=== PATIENT | male | born 1965 | race Caucasian/White ===

== ENCOUNTER 2016-12-28 11:11 | Inpatient (IN) ==
[2016-12-28] MEDS ORDERED: methylPREDNISolone 125 MG/2 ML VIAL IVP ONE (11:15)
[2016-12-28] MEDS ORDERED: Ipratropium/Albuterol Neb 3 ML IH ONE ×2 (11:15→13:36)
--- NOTE | 2016-12-28 11:22 | Emergency Department Note ---
Disposition Clinical Impression: Acute exacerbation of chronic obstructive airways disease CHF (congestive heart failure) Qualifiers: Congestive heart failure type: unspecified congestive heart failure type Congestive heart failure chronicity: acute Qualified Code(s): I50.9 - Heart failure, unspecified Disposition: Admitted As Inpatient Condition: Fair Referrals: Ruchi Rodrigez CNP [Primary Care Provider] - Forms: ED Satisfaction Letter Time of Disposition: 12:32 SOB HPI - General Chief Complaint: ED Shortness of Breath/Dyspnea Stated Complaint: SOB Time Seen by Provider: 12/28/16 11:15 Source: patient Mode of arrival: private vehicle Limitations: no limitations Nursing Notes Reviewed: Yes Vital Signs Reviewed: Yes - History of Present Illness 51-year-old who states he doesn't have a diagnosis of COPD however he smoked for almost 40 years who comes in with increasing shortness of breath and wheezing. Also brings in a jar of cream colored liquid that he says is his urine. Symptoms for the last several days. Pt Subjective Complaint: shortness of breath, cough Onset (ago): day(s) Severity: moderate Consistency/Duration: constant Improves with: nothing Known history of: COPD Associated symptoms: Reports: cough. Denies: fever Treatment prior to arrival: none Cough Description: Involuntary Cough Frequency: Intermittent - Related Data Home Medications Medication Instructions Recorded Confirmed Cetirizine HCl [Zyrtec] 10 mg PO DAILY 11/13/16 11/13/16 Fluticasone Propionate Nasal 1 spr NS QPM 11/13/16 11/13/16 [Flonase] Guaifenesin [Mucinex] 600 mg PO Q12H 11/13/16 11/13/16 Pseudoephedrine [Sudafed] 30 mg PO Q72H 11/13/16 11/13/16 Previous Rx's Medication Instructions Recorded OxyCODONE/APAP 5/325 [Percocet 1 each PO Q6HR PRN #14 tablet 11/13/16 5/325 MG] Allergies Allergy/AdvReac Type Severity Reaction Status Date / Time meperidine [From Demerol] AdvReac combative Verified 11/13/16 07:33 Constitutional: Denies: fever, chills, weakness, weight change Eyes: Denies: eye pain, eye discharge, vision change ENT ED: Denies: ear pain, throat pain, dental pain, hearing loss, epistaxis, congestion, dysphagia Cardiovascular: Denies: chest pain, palpitations, dyspnea on exertion, edema, syncope Respiratory: Reports: cough, dyspnea, wheezes. Denies: hemoptysis, stridor Gastrointestinal: Denies: abdominal pain, nausea, vomiting, diarrhea, constipation, hematemesis, melena, hematochezia Genitourinary: Reports: dysuria. Denies: urgency, frequency, hematuria Musculoskeletal: Denies: back pain, neck pain, arthralgia, myalgia Integumentary: Denies: rash, abrasion, lesions Neurological: Denies: headache, weakness, numbness, paresthesias, confusion, abnormal gait, vertigo Psychiatric: Denies: anxiety, depression, suicidal thoughts, homicidal thoughts , auditory hallucinations, visual hallucinations Endocrine: Denies: fatigue Hematological/Lymphatic: Denies: easy bleeding, easy bruising Allergic/Immunologic: Denies: facial swelling, urticaria Past Medical History - Past Medical History Medical history: Reports: other Surgical history: Reports: appendectomy, orthopedic, other, other Psychiatric history: Reports: no psych history - Social History Smoking Status: Current every day smoker Alcohol use: Reports: none Drug use: Reports: none Physical Exam - General Limitations: no limitations General appearance: alert, in no apparent distress - Head Head exam: atraumatic, normocephalic, normal inspection - Eye Eye exam: Present: normal appearance, PERRL, EOMI - ENT ENT exam: normal exam, normal oropharynx, mucous membranes moist - Neck Neck exam: Present: normal inspection, full ROM, trachea midline - Chest Chest inspection: Present: normal inspection, symmetric chest wall rise - Respiratory Respiratory exam: Present: respiratory distress, wheezes - Cardiovascular Cardiovascular exam: Present: regular rate, normal rhythm, normal heart sounds - Abdominal Exam Abdominal exam: Present: soft, Non-Tender. Absent: tenderness, distention, guarding, rebound, rigidity - Expanded Lower Extremity Exam Neurovascular/Tendon exam: Absent: motor deficit, sensory deficit, tendon deficit Gait: not tested/not observed - Back Exam Back exam: Present: normal inspection, full ROM. Absent: tenderness - Neurological Exam Neurological exam: Present: alert, oriented X3 - Psychiatric Psychiatric exam: Present: normal affect, normal mood - Skin Skin exam: Present: warm, dry, intact, normal color Course Course Narrative: 51-year-old comes in with COPD/CHF exacerbation. Chest x-ray does show pulmonary congestion along with an elevated BNP. - Consultations Consultation #1: Discussed with Dr. Le who accepts the patient. Time: 12:41 Vital Signs Temperature 98.2 F 12/28/16 11:18 Pulse Rate 125 12/28/16 11:18 Respiratory Rate 20 12/28/16 11:18 Blood Pressure 146/109 12/28/16 11:18 O2 Sat by Pulse Oximetry 95 12/28/16 11:18 Temperature 98.2 F 12/28/16 11:18 Pulse Rate 116 12/28/16 12:29 Respiratory Rate 16 12/28/16 12:29 Blood Pressure 153/81 12/28/16 12:29 O2 Sat by Pulse Oximetry 94 L 12/28/16 12:29 Oxygen Delivery Oxygen Delivery Nasal Cannula Shortness of Breath/Dyspnea - Lab Data Lab results reviewed: Yes I reviewed the patient's lab results. Result diagrams: 12/28/16 11:30 12/28/16 11:30 Lab Results 12/28/16 12/28/16 12/28/16 Range/Units 11:30 11:30 11:30 WBC 10.0 (4.3-11.1) K/mcL RBC 4.36 (4.19-5.50) M/mcL Hgb 14.0 (12.9-16.9) g/dL Hct 39.4 (37.5-50.1) % MCV 90.4 (83.0-100.0) fL MCH 32.1 (28.0-33.3) pg MCHC 35.5 (31.6-35.5) g/dL RDW 14.2 (11.5-14.5) % Plt Count 212 (140-400) K/mcL MPV 9.0 L (9.4-12.4) fL Immature Gran % 0.6 (0-4) % Seg Neutrophils % 89.2 % Lymphocytes % 6.0 % Monocytes % 3.6 % Eosinophils % 0.3 % Basophils % 0.3 % Neutrophils # 8.9 (1.6-8.9) K/mcL Lymphocytes # 0.6 (0.6-4.6) K/mcL Monocytes # 0.4 (0.0-1.3) K/mcL Eosinophils # 0.0 (0.0-0.6) K/mcL Basophils # 0.0 (0.0-0.2) K/mcL PT 12.6 H (9.4-12.1) Seconds INR 1.2 APTT 25.2 L (26.0-36.0) Seconds Sodium 130 L (136-145) mEq/L Potassium 4.0 (3.5-4.5) mEq/L Chloride 97 L (98-109) mEq/L Carbon Dioxide 18 L (19-29) mEq/L BUN 16 (8-26) mg/dL Creatinine 0.72 (0.72-1.25) mg/dL Est GFR ( Amer) > 60 (> 60) Est GFR (Non-Af Amer) > 60 (> 60) BUN/Creatinine Ratio 22 (6-26) Glucose 147 H (70-99) mg/dL Calculated Osmolality 274 L (280-300) Calcium 9.1 (8.6-10.8) mg/dL Troponin I (0-0.03) ng/mL B-Natriuretic Peptide (0-100) pg/mL Urine Color (Yellow) Urine Clarity (Clear) Urine pH (5.0-8.0) pH Units Ur Specific Castine (1.010-1.025) Urine Protein (Neg-Trace) mg/dL Urine Glucose (UA) (Normal) mg/dL Urine Ketones (Negative) mg/dL Urine Blood (Negative) Urine Nitrite (Negative) Urine Bilirubin (Negative) Urine Urobilinogen (Normal) mg/dL Ur Leukocyte Esterase (Negative) Urine Microscopic RBC (0-3) per hpf Urine Microscopic WBC (0-3) per hpf Ur Squamous Epith Cells (None-Few) per lpf Urine Bacteria (None-Few) per hpf Hyaline Casts (None-Few) per lpf Ur Culture Indicated? (NO) 12/28/16 12/28/16 12/28/16 Range/Units 11:30 11:30 12:30 WBC (4.3-11.1) K/mcL RBC (4.19-5.50) M/mcL Hgb (12.9-16.9) g/dL Hct (37.5-50.1) % MCV (83.0-100.0) fL MCH (28.0-33.3) pg MCHC (31.6-35.5) g/dL RDW (11.5-14.5) % Plt Count (140-400) K/mcL MPV (9.4-12.4) fL Immature Gran % (0-4) % Seg Neutrophils % % Lymphocytes % % Monocytes % % Eosinophils % % Basophils % % Neutrophils # (1.6-8.9) K/mcL Lymphocytes # (0.6-4.6) K/mcL Monocytes # (0.0-1.3) K/mcL Eosinophils # (0.0-0.6) K/mcL Basophils # (0.0-0.2) K/mcL PT (9.4-12.1) Seconds INR APTT (26.0-36.0) Seconds Sodium (136-145) mEq/L Potassium (3.5-4.5) mEq/L Chloride (98-109) mEq/L Carbon Dioxide (19-29) mEq/L BUN (8-26) mg/dL Creatinine (0.72-1.25) mg/dL Est GFR ( Amer) (> 60) Est GFR (Non-Af Amer) (> 60) BUN/Creatinine Ratio (6-26) Glucose (70-99) mg/dL Calculated Osmolality (280-300) Calcium (8.6-10.8) mg/dL Troponin I 0.03 (0-0.03) ng/mL B-Natriuretic Peptide 674 H (0-100) pg/mL Urine Color Dark Yellow (Yellow) Urine Clarity Cloudy A (Clear) Urine pH 5.5 (5.0-8.0) pH Units Ur Specific Castine 1.027 H (1.010-1.025) Urine Protein 100 H (Neg-Trace) mg/dL Urine Glucose (UA) Normal (Normal) mg/dL Urine Ketones 15 H (Negative) mg/dL Urine Blood Trace H (Negative) Urine Nitrite Negative (Negative) Urine Bilirubin Small H (Negative) Urine Urobilinogen Normal (Normal) mg/dL Ur Leukocyte Esterase Negative (Negative) Urine Microscopic RBC 5-15 H (0-3) per hpf Urine Microscopic WBC 0-3 (0-3) per hpf Ur Squamous Epith Cells Many H (None-Few) per lpf Urine Bacteria None Seen (None-Few) per hpf Hyaline Casts None Seen (None-Few) per lpf Ur Culture Indicated? NO (NO) - Radiology Data Radiology results reviewed: Yes I reviewed the patient's radiology results. Chest X-Ray 12/28/16 11:16 IMPRESSION: Cardiomegaly with mild pulmonary vascular congestion. Asymmetric opacities at the lung bases favored to represent mild underlying pulmonary edema. Atelectasis or developing pneumonia cannot be excluded. D/ / 12/28/2016 12:25:09 Jay Jay Daniels MD / [facility] Interpreting Provider: Jay Jay Daniels MD - EKG Data EKG attestation: Yes I reviewed and interpreted this EKG. EKG shows normal: Reports: sinus rhythm Rate: Reports: tachycardia Rhythm: Reports: NSR, PVC's Interpretation: Reports: no acute changes
[2016-12-28 11:43] LABS: Basophils % 0.3 %; Eosinophils % 0.3 %; Hematocrit 39.4 % (37.5-50.1); Immature Granulocytes % 0.6 % (0-4); Lymphocytes # 0.6 K/mcL (0.6-4.6); Mean Corpuscular HGB Conc 35.5 g/dL (31.6-35.5); Mean Corpuscular Hemoglobin 32.1 pg (28.0-33.3); Mean Corpuscular Volume 90.4 fL (83.0-100.0); Monocytes # 0.4 K/mcL (0.0-1.3); Monocytes % 3.6 %; Neutrophils # 8.9 K/mcL (1.6-8.9); Platelet Count 212 K/mcL (140-400); Red Blood Count 4.36 M/mcL (4.19-5.50); Red Cell Distribution Width 14.2 % (11.5-14.5); Segmented Neutrophils % 89.2 %
[2016-12-28 11:53] LABS: INR 1.2; Prothrombin Time 12.6 Seconds (9.4-12.1)
[2016-12-28 11:55] LABS: Activated Partial Thrombo Time 25.2 Seconds (26.0-36.0); BUN/Creatinine Ratio 22 (6-26); Blood Urea Nitrogen 16 mg/dL (8-26); Calcium 9.1 mg/dL (8.6-10.8); Carbon Dioxide 18 mEq/L (19-29); Chloride 97 mEq/L (98-109); Glucose 147 mg/dL (70-99); Osmolality,Calculated 274 (280-300); Sodium 130 mEq/L (136-145); eGFR For African Americans > 60 (> 60); eGFR For Non-African Americans > 60 (> 60)
[2016-12-28] MEDS ORDERED: Furosemide 40 MG/4 ML VIAL IVP ONE (12:31)
[2016-12-28 12:41] LABS: Bilirubin,Urine Small (Negative); Blood,Urine Trace (Negative); Clarity,Urine Cloudy (Clear); Color,Urine Dark Yellow (Yellow); Glucose,Urine (UA) Normal (Normal); Ketones,Urine 15 mg/dL (Negative); Leukocyte Esterase,Urine Negative (Negative); Nitrite,Urine Negative (Negative); PH,Urine 5.5 pH Units (5.0-8.0); Protein,Urine 100 mg/dL (Neg-Trace); Specific Gravity,Urine 1.027 (1.010-1.025); Urobilinogen,Urine Normal (Normal)
[2016-12-28 12:43] LABS: Bacteria,Urine None Seen per hpf (None-Few); Hyaline Casts,Urine None Seen per lpf (None-Few); Squamous Epithelial Cell,Urine Many per lpf (None-Few); WBC,Urine 0-3 per hpf (0-3)
[2016-12-28 13:03] LABS: Alanine Aminotransferase 54 Units/L (0-55); Albumin 3.9 g/dL (3.5-5.0); Albumin/Globulin Ratio 1.3 (1.1-2.2); Alkaline Phosphatase 120 Units/L (38-126); Aspartate Amino Transferase 45 Units/L (5-34); Bilirubin,Direct 0.5 mg/dL (0.0-0.5); Bilirubin,Indirect 0.7 mg/dL (0.0-1.2); Bilirubin,Total 1.2 mg/dL (0.2-1.2); Globulin 2.9 g/dL (2.4-3.5); Total Protein 6.8 g/dL (6.0-8.3)
[2016-12-28] MEDS ORDERED: Ipratropium/Albuterol Neb 3 ML ONE (13:44)
[2016-12-28] MEDS ORDERED: Ondansetron 4 MG/2 ML VIAL IVP PRN (14:10)
[2016-12-28] MEDS ORDERED: Naloxone 0.4 MG/ML INJ IVP PRN (14:10)
[2016-12-28] MEDS ORDERED: *HR* Metoprolol 5 MG/5 ML VIAL IVP ONE (14:48)
--- NOTE | 2016-12-28 15:16 | Internal Med History&Physical ---
Date of Encounter: 12/28/16 Time of Encounter: 14:30 Assessment and Plan (1) Acute exacerbation of CHF (congestive heart failure) Current visit: Yes Status: Acute No documented history of CHF however patient reports of having extensive cardiac history of heart disease and heart failure. Given clinical presentation, will treat as CHF exacerbation Due to persistent tachycardia and hypertension, one dose of Lopressor 5mg IV given will start Carvediloll 3.125mg PO q12h starting tomorrow F/u 2D echo continue IV diuretic therapy monitor daily weight monitor I/Os fluid restricted diet continue to monitor O2 saturation O2 supplementation as needed Qualifiers: Congestive heart failure type: unspecified congestive heart failure type Qualified Code(s): I50.9 - Heart failure, unspecified (2) COPD (chronic obstructive pulmonary disease) Current visit: Yes Status: Acute Not diagnosed with COPD however given clinical history, patient will benefit from outpatient PFTs will monitor without steroids and continue bronchodilator support monitor O2 saturation O2 supplementation as needed Qualifiers: COPD type: unspecified COPD Qualified Code(s): J44.9 - Chronic obstructive pulmonary disease, unspecified (3) Hypertension Current visit: Yes Status: Acute Patient has no history of hypertension but required antihypertensive medications for BP control will continue to closely monitor added Hydralazine prn SBP>150 Qualifiers: Hypertension type: essential hypertension Qualified Code(s): I10 - Essential (primary) hypertension (4) Seasonal allergies Current visit: Yes Status: Chronic continue home medications Qualifiers: Allergic rhinitis trigger: unspecified Qualified Code(s): J30.2 - Other seasonal allergic rhinitis (5) DVT prophylaxis Current visit: Yes Status: Acute Heparin SQ (6) Hyperglycemia Current visit: Yes Status: Acute No history of DM will obtain HbA1C continue to monitor BG If remains hyperglycemic, will add correctional SS Insulin algorithm (7) Cigarette smoker Current visit: Yes Status: Acute Smoking cessation counseling provided patient not ready to quit at this time nicotine replacement therapy provided Internal Medicine - H&P: HPI Chief complaint: shortness of breath Admitted From: Home Plans for Post Hospital Care: Home History of present illness: Mr. Griffith is a 51 year old male with PMH of seasonal allergies who presents to the ER for evaluation of shortness of breath. Patient states about a week ago he had a fall outdoors while walking his dog, landing on his lateral side and hurting his ribcage and since then he has been getting short of breath. 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 He also reports of noticing bilateral lower extremity edema which has worsened over the last week. He reports of productive cough with white sputum for the last week as well. In the ER patient received nebulizer treatments, steroids, and lasix. He does not have a documented history of COPD or CHF. He states he last saw his physician in October and has been in good health prior to this episode. At this time, he is resting in bed, saturating well on nasal cannula. Denies any headache, dizziness, lightheadedness, chest pain, palpitations, abd pain, n/v, fever, or chills. Social Hx: 1-2ppd x 35years Past Med Surg Social Fam HX - Past Medical History Medical history: COPD, other Psychiatric history: no psych history - Past Surgical History Surgical History: appendectomy, orthopedic, other, other - Social History Smoking Status: Current every day smoker Packs per day: <1 Smokeless Tobacco Status: Yes (occaisional) Alcohol use: none Drug use: none - Family History Mother Hx Family Cardiac Disorders: Yes Hx Family Respiratory Disorders: Yes Internal Medicine - H&P: Meds Cetirizine HCl [Zyrtec] 10 mg PO DAILY 11/13/16 [History] Fluticasone Propionate Nasal [Flonase] 50 mcg NS QPM 11/13/16 [History] Guaifenesin [Mucinex] 600 mg PO Q12H 11/13/16 [History] Pseudoephedrine [Sudafed] 30 mg PO Q72H 11/13/16 [History] Allergies meperidine [From Demerol] Adverse Reaction (Verified 12/28/16 13:32) Agitated All Systems PM: A 10-system review of systems was performed and is negative for pertinent findings except as documented above in the HPI. - Constitutional Constitutional: as per HPI - Constitutional Vitals: Temp Pulse Resp BP Pulse Ox 97.9 F 117 16 137/85 94 L 12/28/16 14:23 12/28/16 14:23 12/28/16 14:23 12/28/16 14:23 12/28/16 14:23 General appearance: Present: cooperative, A&O X 3, morbidly obese, pleasant, no acute distress, answers questions appropriately - Head Head exam: Present: atraumatic, normocephalic - Eye Eye exam: Present: normal appearance, conjuntiva pink, sclera anicteric - Respiratory Respiratory exam: Absent: respiratory distress, wheezes (bibasilar crackles bilaterally) - Cardiovascular Cardiovascular exam: Present: JVD, +S1, +S2, tachycardia - GI/Abdominal GI/Abdominal exam: Present: normal bowel sounds, soft. Absent: distended, tenderness - Extremities Exam Extremities exam: Present: pedal edema (1+ pitting edema bilaterally), warm, radial pulses palpable and symetrical. Absent: calf tenderness, tenderness - Neurological Exam Neurological exam: Present: alert, oriented X3 - Psychiatric Psychiatric exam: Present: normal affect, normal mood Internal Med - H&P Results - Labs CBC & Chem 7: 12/28/16 11:30 12/28/16 11:30
[2016-12-28] MEDS: Nicotine 21 MG PATCH.TD24 TD SCH (15:17)
[2016-12-28] MEDS ORDERED: Ipratropium/Albuterol Neb 3 ML IH SCH (16:00)
[2016-12-28] MEDS: *HR* Heparin 5,000 UNIT/ML VIAL SQ SCH (18:01)
[2016-12-28] MEDS: Fluticasone Propionate Nasal 50 MCG/SPRAY BOTTLE NS SCH (18:01)
[2016-12-28] MEDS: Ipratropium/Albuterol Neb 3 ML IH PRN (18:30)
[2016-12-29] MEDS: Ipratropium/Albuterol Neb 3 ML IH PRN (01:10)
[2016-12-29 06:35] LABS: Basophils % 0.1 %; Eosinophils % 0.2 %; Hematocrit 36.1 % (37.5-50.1); Hemoglobin 12.6 g/dL (12.9-16.9); Immature Granulocytes % 0.6 % (0-4); Lymphocytes % 12.4 %; Mean Corpuscular HGB Conc 34.9 g/dL (31.6-35.5); Mean Corpuscular Volume 91.6 fL (83.0-100.0); Mean Platelet Volume 9.1 fL (9.4-12.4); Monocytes # 0.9 K/mcL (0.0-1.3); Monocytes % 10.7 %; Neutrophils # 6.3 K/mcL (1.6-8.9); Platelet Count 183 K/mcL (140-400); Red Blood Count 3.94 M/mcL (4.19-5.50); Red Cell Distribution Width 14.4 % (11.5-14.5)
[2016-12-29 06:46] LABS: Hemoglobin A1C 4.7 %
[2016-12-29] MEDS: Furosemide 40 MG/4 ML VIAL IVP SCH ×2 (06:48→08:01)
[2016-12-29] MEDS: *HR* Heparin 5,000 UNIT/ML VIAL SQ SCH ×2 (06:48→17:45)
[2016-12-29 06:50] LABS: BUN/Creatinine Ratio 19 (6-26); Blood Urea Nitrogen 15 mg/dL (8-26); Carbon Dioxide 26 mEq/L (19-29); Chloride 100 mEq/L (98-109); Chol/HDL Ratio 3.6 (0-4.9); Cholesterol 139 mg/dL (< 200); Glucose 116 mg/dL (70-99); HDL Cholesterol 39 mg/dL (40-59); LDL Cholesterol,Calculated 82 mg/dL (0-99); Magnesium 1.9 mg/dL (1.6-2.6); Osmolality,Calculated 284 (280-300); Phosphorous 3.6 mg/dL (2.3-4.7); Potassium 3.4 mEq/L (3.5-4.5); Sodium 136 mEq/L (136-145); Triglycerides 88 mg/dL (< 150); eGFR For African Americans > 60 (> 60); eGFR For Non-African Americans > 60 (> 60)
[2016-12-29] MEDS: Loratadine 10 MG TABLET PO SCH (08:01)
[2016-12-29] MEDS: Nicotine 21 MG PATCH.TD24 TD SCH (08:01)
[2016-12-29] MEDS ORDERED: Perflutren Lipid Microsphere 1.3 ML in 0.9 % Sodium Chloride 8.7 ML IVP ONE (08:50)
--- NOTE | 2016-12-29 10:11 | Internal Med Progress Note ---
Date of Encounter: 12/29/16 Time of Encounter: 10:09 - Assessment and plan (1) Acute exacerbation of CHF (congestive heart failure) Current Visit: Yes Status: Acute Assessment and plan: Acute respiratory distress likely secondary to combination of possible acute CHF exacerbation systolic versus diastolic with also acute COPD exacerbation secondary to bronchitis viral versus bacterial/early community-acquired pneumonia Chest x-ray shows pulmonary vascular congestion with acute pulmonary edema, pneumonia cannot be excluded Continue with IV Lasix, strict I's and nose and daily weight *Prednisone and azithromycin DuoNeb nebs and oxygen therapy Echocardiogram report pending Qualifiers: Congestive heart failure type: unspecified congestive heart failure type Qualified Code(s): I50.9 - Heart failure, unspecified (2) Acute exacerbation of chronic obstructive airways disease Current Visit: Yes Status: Acute (3) Cigarette smoker Current Visit: Yes Status: Acute Assessment and plan: Smoking cessation counseling given for 5 min Nicotine patch (4) Hypertension Current Visit: Yes Status: Acute Qualifiers: Hypertension type: essential hypertension Qualified Code(s): I10 - Essential (primary) hypertension (5) Hypokalemia Current Visit: Yes Status: Acute Assessment and plan: replete as needed high risk due to pulm edema and possible PNA - Time Spent With Patient Greater than 35 minutes - Subjective Interval history: Still short of breath, is bringing up whitish phlegm. Denies any chest pain, no abdominal pain, no dysuria, no fevers overnight. - Constitutional Vitals: Temp Pulse Resp BP Pulse Ox 97.3 F L 92 20 131/84 96 12/29/16 07:15 12/29/16 07:15 12/29/16 07:15 12/29/16 07:15 12/29/16 07:15 General appearance: Present: cooperative, A&O X 3, morbidly obese, pleasant, no acute distress, answers questions appropriately - Head Head exam: Present: atraumatic, normocephalic - Eye Eye exam: Present: PERRL, conjuntiva pink, sclera anicteric Pupils: Present: PERRL - Neck Neck exam general surgery: Present: supple, trachea midline. Absent: lymphadenopathy - Respiratory Respiratory exam: Present: decreased breath sounds (Very diminished breath sounds with mild diffuse wheezing and bibasilar crackles), CTAB. Absent: accessory muscle use, rales, rhonchi, wheezes - Cardiovascular Cardiovascular exam: Present: RRR, +S1, +S2. Absent: diastolic murmur, gallop, rubs, systolic murmur - GI/Abdominal GI/Abdominal exam: Present: normal bowel sounds, soft, no peritoneal signs. Absent: distended, tenderness - Extremities Exam Extremities exam: Present: warm, radial pulses palpable and symetrical. Absent : calf tenderness, cyanotic, pedal edema - Neurological Exam Neurological exam: Present: CN II-XII intact, oriented X3, no focal deficits. Absent: pronater drift, facial droop, speech deficit - Skin Skin exam: Present: dry, intact Internal Medicine: Result - Labs CBC & Chem 7: 12/29/16 06:09 12/29/16 06:09 Labs: Short CBC 12/29/16 Range/Units 06:09 WBC 8.2 (4.3-11.1) K/mcL Hgb 12.6 L (12.9-16.9) g/dL Hct 36.1 L (37.5-50.1) % Plt Count 183 (140-400) K/mcL Neutrophils # 6.3 (1.6-8.9) K/mcL BMP 12/29/16 06:09 Sodium 136 Potassium 3.4 L Chloride 100 Carbon Dioxide 26 BUN 15 Creatinine 0.78 Glucose 116 H Calcium 9.0 - ABG Interpretation ABG results: PT/INR, D-dimer PT 12.6 Seconds (9.4-12.1) H 12/28/16 11:30 Consult Discharge Plan - Plan Referrals: Ruchi Rodrigez CNP [Primary Care Provider] - (web request)
[2016-12-29] MEDS: predniSONE 20 MG TABLET PO SCH (10:31)
[2016-12-29] MEDS ORDERED: Nitroglycerin 0.4 MG TAB.SUBL SL PRN (10:52)
--- NOTE | 2016-12-29 10:53 | ECHO - Doppler Report ---
Echo with Imaging Enhancement Agent Name: Carter Griffith Date of Study: 12/29/2016 Date: 1965 Ht: 72.0 in Medical Record#: [id number] Age: 51 Wt: 247.0 lb Gender: Male BSA: 2.33 Order #: [id number] Location: [facility] Room #: 2A34 Reading Physician: Alessandro Dixon DO, FACC, LORIE CLAY Plumber'S Assistant: Soledad Crump, RVT, RDCS Ordering Physician: Bambi Bonilla MD Primary Physician: Ruchi Rodrigez CNP Indications: Evaluate wall motion, Shortness of breath Impressions: LVEF 15%. Severely dilated left ventricle. Severe global left ventricular systolic dysfunction. Indeterminate diastolic function. There is no LV thrombus. Grossly, the right ventricle appears mildly dilated and hypokinetic. Mild mitral regurgitation. No evidence of pulmonary hypertension. RVSP not well obtained and could be underestimated. Dr. Aquino notified via Pre[facility]. Left Ventricular Wall Motion: Rest Echo Findings The apex, apical inferior, mid inferior, basal inferior, apical anterior, mid anterior, basal anterior, apical septal, mid inferior septal, basal inferior septal, apical lateral, mid anterior lateral, basal anterior lateral, mid anterior septal, mid inferior lateral, basal anterior septal and basal inferior lateral givens were hypokinetic. Findings: Study Quality * Technically adequate exam. ECG Findings * Sinus tachycardia. Left Ventricle * LVEF 15%. * Severely dilated left ventricle. * Severe global left ventricular systolic dysfunction. * Indeterminate diastolic function. * There is no LV thrombus. Right Ventricle * Grossly, the right ventricle appears mildly dilated and hypokinetic. Left Atrium * Moderately dilated left atrium. Right Atrium * Mildly dilated right atrium. Interatrial Septum * Interatrial septum not well evaluated. Aortic Valve * Trileaflet aortic valve with normal function. * No aortic regurgitation. * No aortic stenosis. Mitral Valve * Normal mitral valve structure. * Mitral valve not well visualized. * Mild mitral regurgitation. * No mitral stenosis. Tricuspid Valve * Normal tricuspid valve structure and function. * Trace tricuspid regurgitation. * No evidence of pulmonary hypertension. Pulmonic Valve * Normal pulmonic valve structure and function. * No pulmonic regurgitation. Aorta * Normally sized aortic root. Pericardium * The pericardium appears normal. IVC * Normal IVC dimensions and inspiratory collapse. Pulmonary Artery * Pulmonary artery not well visualized. History History of Smoking Years 39 Packs 0.5 Family History of CAD Contrast: Definity 1.3 ml in 8.7 ml of saline 5 ml. Measurements: BP: 131/ 84 2D Normal Values RVIDd: 2.40 cm <2.7 cm IVSd: 1.10 cm 0.6 - 1.0 cm LVIDd: 6.80 cm 3.7 - 5.6 cm LVPWd: 1.40 cm 0.6 - 1.1 cm LVIDs: 6.30 cm 1.5 - 3.6 cm AO: 3.30 cm < 4.0 cm LA: 3.60 cm 2.0 - 4.0cm %FS: 7.35 cm >25 % LA volume: 73 Mitral Valve Peak E:.82 m/sec Tricuspid Valve TV Regurg Peak Grad: 17.00mmHg TV Regurg Peak Felipe: 2.06m/sec Updated by Alessandro Dixon DO, CHETNA, LORIE CLAY on 12/29/2016 10:47:46 AM electronically signed on 12/29/2016 10:50:14 AM with status of Final Wall Motion Blount: 1=Normal, 2=Hypokinesis, 3=Akinesis, 4=Dyskinesis, 5=Aneurysmal, 6=Hyperkinetic, X=Not Visualized (Blank)=Missing
[2016-12-29] MEDS ORDERED: Azithromycin 500 MG in D5% in Water 250 ML IVPB SCH (11:00)
[2016-12-29] MEDS ORDERED: *HR* Metoprolol 5 MG/5 ML VIAL IVP ONE (11:21)
[2016-12-29] MEDS: *HR* Metoprolol 5 MG/5 ML VIAL IVP PRN ×2 (11:29→11:55)
[2016-12-29] MEDS ORDERED: *HR* Metoprolol 5 MG/5 ML VIAL IVP SCH (11:30)
[2016-12-29] MEDS ORDERED: Furosemide 20 MG/2 ML VIAL IVP ONE (11:47)
--- NOTE | 2016-12-29 12:01 | Cardiology Consult Note ---
<Giorgio Dawson R - Last Filed: 12/29/16 12:17> Date of Encounter: 12/29/16 Time of Encounter: 11:59 Assessment and Plan (1) Unstable angina Current Visit: Yes Status: Acute Pt pale, hypotensive, tachycardic, diaphoretic, with pain between his shoulder blades. Echo today showed EF 15%. EKG shows ST depressions. Recommend proceeding with [facility] today for ischemic evaluation. R/B/A discussed. Pt agrees. ASA, Statin, BB were all started. Will continue to follow. (2) Acute exacerbation of CHF (congestive heart failure) Current Visit: Yes Status: Acute Presented with dyspnea, lower extremity edema, ongoing for the past month. BNP 674, CXR with pulmonary vascular congestion and acute pulmonary edema. BLE edema on exam. Echo resulted--EF 15%, severe global LV dysfunction, mild MR. LHC to rule out ischemic cause. Pt currently hypotensive, diaphoretic and having active pain between his shoulder blades. R/B/A discussed. Pt agreeable. [facility] today. On Lasix IV 40mg BID--agree with IV diuresis. Cumulative I/O -2565mL. Recommend strict I/O, Na and fluid restriction, daily weights. Continue to follow. Qualifiers: Congestive heart failure type: unspecified congestive heart failure type Qualified Code(s): I50.9 - Heart failure, unspecified (3) Cardiomyopathy Current Visit: Yes Status: Acute New diagnosis EF 15%--global. CHF exacerbation. Does report working a lot, being under a lot of stress with his daughter. Reports drinking alcohol approximately 2 times per week, 2 drinks when he does drink. Ischemic vs. Nonischemic. [facility] to evaluate. Qualifiers: Cardiomyopathy type: unspecified Qualified Code(s): I42.9 - Cardiomyopathy , unspecified (4) Tobacco abuse Current Visit: Yes Status: Acute Smoking cessation counseling given. Discussion w patient/family: The assessment and plan as outlined above was discussed with the patient and/or family members who expressed understanding and agreement. All questions were answered. Thank you for involving us in the care of your patient. Please call with any questions. I will discuss all the above with Dr. Mccarty and make changes as necessary. History of Present Illness Consult date: 12/29/16 Requesting physician: Daniel Johnson Consult reason: CMP, EF 15% Chief complaint: dyspnea, lower extremity edema, pain between shoulder blades History of present illness: Mr. Griffith is a 51 year old male with known PMH of seasonal allergies who presents to the ER for evaluation of shortness of breath. Patient states beginning of November he had a fall outdoors while hunting, landing on his left side and hurting his rib cage and since then he has been getting short of breath. 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 He also reports of noticing bilateral lower extremity edema which has worsened over the last week. He reports of productive cough with white sputum for the last week as well. He reports he has been having intermittent left sided chest pain and back pain between his shoulder blades since the fall, but attributed it to being bruised from the fall. Initial troponin yesterday was negative. Echo resulted today that shows EF 15%, severe global LV dysfunction. Mild Cardiology was consulted. On my arrival, pt is diaphoretic, dizzy, hypotensive, ill appearing. He is complaining of active pain between his shoulder blades. EKG with ST depression. Admits to alcohol intake 2x week, a couple of drinks each time. Grandfather had RI in his 50s. Past Med Surg Social Fam HX - Past Medical History Medical history: COPD, other Psychiatric history: no psych history - Past Surgical History Surgical History: appendectomy, orthopedic, other, other - Social History Smoking Status: Current every day smoker Packs per day: <1 Smokeless Tobacco Status: Yes (occaisional) Alcohol use: none Drug use: none - Family History Mother Hx Family Cardiac Disorders: Yes Hx Family Respiratory Disorders: Yes Medications and Allergies Cetirizine HCl [Zyrtec] 10 mg PO DAILY 11/13/16 [History] Fluticasone Propionate Nasal [Flonase] 50 mcg NS QPM 11/13/16 [History] Guaifenesin [Mucinex] 600 mg PO Q12H 11/13/16 [History] Pseudoephedrine [Sudafed] 30 mg PO Q72H 11/13/16 [History] Allergies meperidine [From Demerol] Adverse Reaction (Verified 12/28/16 13:32) Agitated All Systems Review: A 10-system review of systems was performed and is negative for pertinent findings except as documented above in the HPI. - Cardiovascular Cardiovascular: as per HPI, chest pain at rest, diaphoresis, dyspnea at rest, dyspnea on exertion, leg edema, lightheadedness, orthopnea Physical Examination Vital Signs, Last 4 Hours Temp Pulse Resp BP Pulse Ox 12/29/16 11:37 111 109/56 12/29/16 11:23 130 18 117/82 12/29/16 10:49 98.5 F 122 18 109/81 99 Vital Signs Temp Pulse Resp BP Pulse Ox 12/29/16 11:37 111 109/56 12/29/16 11:23 130 18 117/82 12/29/16 10:49 98.5 F 122 18 109/81 99 12/29/16 07:15 97.3 F L 92 20 131/84 96 12/29/16 04:49 97.5 F L 112 18 124/82 98 12/29/16 01:16 97 F L 108 16 108/72 99 12/29/16 01:11 20 97 12/28/16 20:54 98.1 F 108 20 99/64 95 12/28/16 18:30 16 98 12/28/16 18:19 99 F 108 16 107/82 96 12/28/16 15:56 97.4 F L 113 16 111/79 95 12/28/16 14:23 97.9 F 117 16 137/85 94 L 12/28/16 13:41 12 126/107 12/28/16 12:29 116 16 153/81 94 L Intake and Output 12/28/16 12/29/16 12/29/16 23:59 07:59 15:59 Intake Total 120 / 120 0 / 0 540 / 540 Output Total 1400 / 1400 600 / 600 550 / 550 Balance -1280 / -1280 -600 / -600 -10 / -10 Intake: Oral 120 / 120 0 / 0 540 / 540 Output: Urine 1400 / 1400 600 / 600 550 / 550 Other: Meal Dinner Breakfast Percent of Meal Consumed 100% 100% # Voids 3 1 Weight 113.217 kg Patient Weight 12/29/16 23:59 Weight 113.217 kg General: Conversant, No Apparent Distress HEENT: Atraumatic, Normocephaly, Mucus Membranes Moist Neck: Other (JVD noted) Cardiac: Reg Rate and Rhythm Lungs: Other (crackles, diminished) Neuro: Alert and responsive, No focal deficits noted Abdomen: Soft, Non-Tender Skin: No rashes noted on visualized skin Musculoskeletal: No Chest Wall Tenderness Extremities: Other (2+ BLE edema) Results 12/29/16 06:09 12/29/16 06:09 Lab Results 12/29/16 12/29/16 06:09 06:09 WBC 8.2 Hgb 12.6 L Hct 36.1 L Plt Count 183 Sodium 136 Potassium 3.4 L Chloride 100 Carbon Dioxide 26 BUN 15 Creatinine 0.78 Glucose 116 H Calcium 9.0 Magnesium 1.9 Short CBC 12/29/16 Range/Units 06:09 WBC 8.2 (4.3-11.1) K/mcL Hgb 12.6 L (12.9-16.9) g/dL Hct 36.1 L (37.5-50.1) % Plt Count 183 (140-400) K/mcL Neutrophils # 6.3 (1.6-8.9) K/mcL BMP 12/29/16 12/28/16 Range/Units 06:09 11:30 Sodium 136 130 L (136-145) mEq/L Potassium 3.4 L 4.0 (3.5-4.5) mEq/L Chloride 100 97 L (98-109) mEq/L Carbon Dioxide 26 18 L (19-29) mEq/L BUN 15 16 (8-26) mg/dL Creatinine 0.78 0.72 (0.72-1.25) mg/dL Glucose 116 H 147 H (70-99) mg/dL Calcium 9.0 9.1 (8.6-10.8) mg/dL Cardiac Enzymes 12/29/16 Range/Units 11:38 Troponin I 0.03 (0-0.03) ng/mL Liver Function 12/28/16 Range/Units 11:30 Total Bilirubin 1.2 (0.2-1.2) mg/dL Direct Bilirubin 0.5 (0.0-0.5) mg/dL AST 45 H (5-34) Units/L ALT 54 (0-55) Units/L Alkaline Phosphatase 120 (38-126) Units/L Albumin 3.9 (3.5-5.0) g/dL Urine 12/28/16 Range/Units 12:30 Urine Color Dark Yellow (Yellow) Urine Clarity Cloudy A (Clear) Urine pH 5.5 (5.0-8.0) pH Units Ur Specific [place] 1.027 H (1.010-1.025) Urine Protein 100 H (Neg-Trace) mg/dL Urine Glucose (UA) Normal (Normal) mg/dL Impressions Chest X-Ray 12/28/16 11:16 IMPRESSION: Cardiomegaly with mild pulmonary vascular congestion. Asymmetric opacities at the lung bases favored to represent mild underlying pulmonary edema. Atelectasis or developing pneumonia cannot be excluded. D/ / 12/28/2016 12:25:09 Jay Jay Daniels MD / [facility] Interpreting Provider: Jay Jay Daniels MD Active Medications Albuterol/Ipratropium (Duoneb) 3 ml IH [id number] PRN; Protocol PRN Reason: Shortness Of Breath/Wheezing Stop: 06/29/17 14:10 Last Admin: 12/29/16 01:10 Dose: 3 ml Aspirin (Aspirin) 325 mg PO DAILY JULIO C Stop: 06/30/17 11:01 Atorvastatin Calcium (Lipitor) 40 mg PO HS JULIO C Stop: 06/30/17 21:01 Azithromycin (Zithromax) 500 mg PO Q24H JULIO C Stop: 01/01/17 12:01 Carvedilol (Coreg) 3.125 mg PO BIDWM JULIO C PRN Reason: Protocol Stop: 06/30/17 08:01 Last Admin: 12/29/16 08:01 Dose: 3.125 mg Fluticasone Propionate (Flonase) 50 mcg NS QPM JULIO C PRN Reason: Protocol Stop: 06/29/17 18:01 Last Admin: 12/28/16 18:01 Dose: 50 mcg Furosemide (Lasix) 40 mg IVP BID JULIO C Stop: 06/30/17 07:01 Last Admin: 12/29/16 08:01 Dose: Not Given Guaifenesin (Mucinex) 600 mg PO Q12H PRN PRN Reason: cough Stop: 06/29/17 14:07 Heparin Sodium (Porcine) (Heparin) 5,000 unit SQ Q12HCO JULIO C Stop: 06/29/17 19:01 Last Admin: 12/29/16 06:48 Dose: 5,000 unit Hydralazine HCl (Hydralazine) 10 mg IVP Q6HR PRN PRN Reason: Hypertension Stop: 06/29/17 15:05 Loratadine (Claritin) 10 mg PO DAILY JULIO C PRN Reason: Protocol Stop: 06/30/17 09:01 Last Admin: 12/29/16 08:01 Dose: 10 mg Metoprolol Tartrate (Lopressor) 5 mg IVP Q5MIN PRN PRN Reason: heart rate greater than 130 Stop: 12/31/16 11:31 Last Admin: 12/29/16 11:29 Dose: 5 mg Naloxone HCl (Narcan) 0.4 mg IVP Q2MIN PRN PRN Reason: Opioid Reversal Stop: 06/29/17 14:11 Nicotine (Nicoderm) 21 mg TD DAILY JULIO C PRN Reason: Protocol Stop: 06/29/17 15:16 Last Admin: 12/29/16 08:01 Dose: 21 mg Nitroglycerin (Nitroglycerin) 0.4 mg SL Q5MIN PRN PRN Reason: Chest Pain Stop: 06/30/17 10:53 Ondansetron HCl (Zofran) 4 mg IVP Q6HR PRN PRN Reason: Nausea And Vomiting Stop: 06/29/17 14:11 Potassium Chloride (Potassium Chloride) 10 meq PO DAILY [facility] Stop: 07/01/17 09:01 Prednisone (Prednisone) 40 mg PO DAILY JULIO C Stop: 06/30/17 10:16 Last Admin: 12/29/16 10:31 Dose: 40 mg - Imaging and Cardiology Chest Xray: report reviewed Echo: report reviewed - EKG Interpretation EKG results cardiology: personally reviewed (SR, ST depression noted), other ( 12 hour tele AVG HR) Consult Discharge Plan - Plan Referrals: Ruchi Rodrigez, ESTHETICIAN [Primary Care Provider] - (web request) <Dez Mccarty - Last Filed: 12/29/16 13:35> Assessment and Plan Discussion w patient/family: The assessment and plan as outlined above was discussed with the patient and/or family members who expressed understanding and agreement. All questions were answered. Thank you for involving us in the care of your patient. Please call with any questions. History of Present Illness History of present illness: Mr. Griffith is a 51 year old male All Systems Review: A 10-system review of systems was performed and is negative for pertinent findings except as documented above in the HPI. Physical Examination Vital Signs, Last 4 Hours Temp Pulse Resp BP Pulse Ox 12/29/16 12:07 118 87/50 12/29/16 11:37 111 109/56 12/29/16 11:23 130 18 117/82 12/29/16 10:49 98.5 F 122 18 109/81 99 Results 12/29/16 06:09 12/29/16 06:09 Lab Results 12/29/16 12/29/16 12/29/16 06:09 06:09 11:38 WBC 8.2 Hgb 12.6 L Hct 36.1 L Plt Count 183 Sodium 136 Potassium 3.4 L Chloride 100 Carbon Dioxide 26 BUN 15 Creatinine 0.78 Glucose 116 H Calcium 9.0 Magnesium 1.9 Troponin I 0.03 - Attending Attestation I examined this patient and my medical decision-making was reviewed with the HAND BOOKED FOLDER AND STITCHER/PA/Advanced Practice Nurse/Resident Physician. I agree with the documented findings, disposition and treatment plan as described except to the extent set forth below. Pt admitted for new onset CHF ef 15% with segmental wall motion abnormality no cp , cough BP 92/60 pulse 100 cool ext CVS: sofst s3 Lungs clear Ext cool EKG: St with T wave inversion in lateral leads CXR: reviewed by me shows CMG plan; ASA Hold B blockers cath today d/w pt and Thanks !
[2016-12-29] MEDS: Aspirin 325 MG TABLET PO SCH (12:05)
[2016-12-29] MEDS ORDERED: 0.9 % Sodium Chloride 1,000 ML ONE ×2 (12:39→13:05)
[2016-12-29] MEDS ORDERED: Heparin 1,000 UNITS/500 mL NS 0 ML ONE (12:39)
[2016-12-29] MEDS ORDERED: *HR* Heparin 10,000 UNIT/10 ML VIAL ONE (12:39)
[2016-12-29 12:41] LABS: Adenovirus Not Detected (Not Detect); Bordetella Pertussis Not Detected (Not Detect); Chlamydophila pneumoniae Not Detected (Not Detect); Coronavirus 229E Not Detected (Not Detect); Coronavirus HKU1 Not Detected (Not Detect); Coronavirus NL63 Not Detected (Not Detect); Coronavirus OC43 Not Detected (Not Detect); Human Metapneumovirus Not Detected (Not Detect); Human Rhinovirus/Enterovirus Not Detected (Not Detect); Influenza A Subtype 2009 H1 Not Detected (Not Detect); Influenza A Untypeable Not Detected (Not Detect); Influenza B Not Detected (Not Detect); Mycoplasma pneumoniae Not Detected (Not Detect); Parainfluenza Virus 1 Not Detected (Not Detect); Parainfluenza Virus 2 Not Detected (Not Detect); Parainfluenza Virus 3 Not Detected (Not Detect); Parainfluenza Virus 4 Not Detected (Not Detect); Respiratory Syncytial Virus Not Detected (Not Detect)
[2016-12-29] MEDS ORDERED: Heparin 1,000 UNITS/500 mL NS 500 ML ONE (12:42)
[2016-12-29] MEDS ORDERED: Nitroglycerin 1,000 MCG/10 ML VIAL IV ONE (12:43)
--- NOTE | 2016-12-29 13:02 | Pre-Sedation Evaluation ---
Pre-sedation evaluation - Pre-sedation checklist Date of procedure: 12/29/16 Procedure: HEART CATH Recent Vitals: Last Vital Signs Temp 98.5 F 12/29/16 10:49 Pulse 118 12/29/16 12:07 Resp 18 12/29/16 11:23 BP 87/50 12/29/16 12:07 Pulse Ox 99 12/29/16 10:49 H&P (including ROS) documented in medical record: Yes Previous reaction to sedatives/anesthetics: Yes; explain in comment Dietary Status: No solid food in preceding 4 hrs and no liquid in preceding 2 hrs Dentition: No loose teeth or bridges Possible difficult airway: No ASA Classification *see protocol: CLASS III-Severe systemic disease Plan of Care: Pt appropriate candidate for procedure/moderate/conscious sedation , Risks/benefits of procedure/sedation discussed w/ patient/family, If not NPO; Risk of intake outweiged by necessity to perform procedure
[2016-12-29] MEDS ORDERED: Furosemide 100 MG/10 ML VIAL ONE (13:22)
[2016-12-29] MEDS ORDERED: *HR* Morphine 2 MG/ML SYRINGE ONE (14:06)
--- NOTE | 2016-12-29 14:15 | Event Note ---
Date of Encounter: 12/29/16 Time of Encounter: 14:14 - Cardiology Event Note cath showed no CAD markedly elevated PCWP echo Ef 15% of note says he drinks heavily plan; lasix drip watch for withdrawal d/w Dr. Le
[2016-12-29] MEDS ORDERED: Furosemide 240 MG in D5% in Water 96 ML IVC SCH (14:16)
[2016-12-29] MEDS ORDERED: *HR* LORazepam 2 MG/ML VIAL IVP PRN ×3 (14:16)
--- NOTE | 2016-12-29 14:18 | Invasive Diagnostic Lab ---
Name: Carter Griffith Date of Study: 12/29/2016 Date: 1965 Ht: 180.0 cm /70.9 in Medical Record#: [id number] Age: 51 Wt: 113. kg / 249.12 lb Account/Order#: [id number] Gender: Male BSA: 2.31 Order #: [id number] Fluoro Dose: 1238 mGy BMI: 34.88 Procedure Physician: Bryon Stephens MD Referring MD: Ruchi Rodrigez CNP Referring MD: Procedures Performed: RHC/LHC Indications: Unstable Angina Impressions: There is moderate pulmonary hypertension. Recommendations: Optimal medical therapy of patient's disease. Aggressive risk factor modification. History/Risk Factors: COPD CHF Appendectomy Occasional smokeless tobacco use Everyday smoker (<1ppd) Family hx CAD Procedure Access obtained in the right Femoral artery by percutaneous puncture A 5 \T\ 7 [place] catheter was introduced via the venous sheath, balloon was inflated and catheter was advanced through the right heart chambers into the pulmonary artery capillary wedge position. Right sided pressures were obtained. Complications: None Contrast: Isovue 34ml Closure Device: manual compression Hemodynamics: Pressures Site Systolic/ A Wave Diastolic/ V Wave End Diastolic/ Mean HR MPA 51 44 47 116 PCW 43 42 41 116 RA 31 29 29 114 RV 49 34 36 116 AO 96 87 91 117 LV 104 39 40 115 LV 102 37 39 117 AO 103 84 92 116 Oximetry Site Saturation PA 50.2 PA 50.2 AO 99 AO 99 Right Heart Data Sabino Cardiac Output (l/min) 3.5 Coronary Dominance: Lesion Findings/Interventions * Left Main Coronary Artery The LMCA is angiographically free of disease. * Left Anterior Descending The LAD is angiographically free of disease. The 1st Diagonal is angiographically free of disease. * Circumflex The Circumflex is angiographically free of disease. The 1st Marginal is angiographically free of disease. * Right Coronary Artery The RCA is angiographically free of disease. The Right PDA is angiographically free of disease. Updated by Jorge Pacheco RN on 12/29/2016 2:09:39 PM Bryon Stephens MD electronically signed on 12/29/2016 2:13:35 PM with status of Final
[2016-12-29] MEDS: Fluticasone Propionate Nasal 50 MCG/SPRAY BOTTLE NS SCH (17:44)
--- NOTE | 2016-12-29 20:26 | Electrocardiograph Report ---
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
[2016-12-29] MEDS ORDERED: *HR* Morphine 2 MG/ML SYRINGE IVP PRN (22:14)
[2016-12-30 04:54] LABS: BUN/Creatinine Ratio 24 (6-26); Blood Urea Nitrogen 24 mg/dL (8-26); Calcium 8.8 mg/dL (8.6-10.8); Carbon Dioxide 31 mEq/L (19-29); Chloride 101 mEq/L (98-109); Glucose 109 mg/dL (70-99); Osmolality,Calculated 301 (280-300); Potassium 3.7 mEq/L (3.5-4.5); eGFR For African Americans > 60 (> 60); eGFR For Non-African Americans > 60 (> 60)
[2016-12-30 04:55] LABS: Sodium 143 mEq/L (136-145)
[2016-12-30] MEDS: *HR* Heparin 5,000 UNIT/ML VIAL SQ SCH ×2 (06:07→20:48)
[2016-12-30] MEDS: Nicotine 21 MG PATCH.TD24 TD SCH (08:54)
[2016-12-30] MEDS: Aspirin 325 MG TABLET PO SCH (08:55)
[2016-12-30] MEDS: predniSONE 20 MG TABLET PO SCH (08:55)
[2016-12-30] MEDS: Loratadine 10 MG TABLET PO SCH (08:55)
--- NOTE | 2016-12-30 09:55 | Cardiology Progress Note ---
Date of Encounter: 12/30/16 Time of Encounter: 09:00 Assessment and Plan (1) CHF (congestive heart failure) Current Visit: Yes Status: Acute Acute systolic CHF--patient reports progressive symptoms over the past year. TTE: EF 15%, severely dilated LV, severe global LV systolic dysfunction, RV mildly dilated & hypokinetic, mild MR. LHC: moderate PH, coronaries are angiographically free of disease. HF non-ischemic in etiology--likely secondary to hx of ETOH abuse, reports 30+ year hx, at least 2-4 beers/day & 2-4 shots of liquor per day. Symptoms improved today--still complains of orthopnea and dyspnea with minimal exertion. 24 I&O: -2650 mL, cumulative -4615 mL. Stop supplemental IVF; change lasix gtt to IVP 80 mg BID. Increase oral potassium today. Continue betablocker--increase once euvolemic. Start ACEi/ARB when BP will tolerate/euvolemic. Strict I&O's, daily weights, and fluid restriction diet. CHF teaching provided. Will need teaching reinforced throughout hospital stay. Will need 1 week f/u with [facility] upon discharge. Re-evaluate LVEF after 3 months of GDMT. Qualifiers: Congestive heart failure type: systolic Congestive heart failure chronicity : acute Qualified Code(s): I50.21 - Acute systolic (congestive) heart failure (2) Non-ischemic cardiomyopathy Current Visit: Yes Status: Acute plan as above. (3) Alcohol abuse Current Visit: Yes Status: Chronic ETOH cessation counseling. [facility] protocol. (4) Tobacco abuse Current Visit: Yes Status: Chronic Smoking cessation counseling given. Discussion w patient/family: The assessment and plan as outlined above was discussed with the patient and/or family members who expressed understanding and agreement. All questions were answered. Thank you for involving us in the care of your patient. Please call with any questions. The patient will be discussed and reviewed with Dr. Tavon Haider; changes to be made accordingly. Subjective Principal diagnosis: Non-ischemic cardiomyopathy; acute sCHF Interval history: Seen and examined. Reports abdominal fullness, lower extremity edema, and shortness of breath improving--not yet at baseline. Reports dyspnea with minimal exertion. Denies events overnight. Objective Vital Signs, Last 4 Hours Temp Pulse Resp BP Pulse Ox 12/30/16 06:33 98 F 104 16 105/64 97 General: Conversant, No Apparent Distress HEENT: Atraumatic, Normocephaly Cardiac: Reg Rate and Rhythm (tachycardiac), Normal S1 and S2 Lungs: Other (Diminished bibasilar, few rales noted. ) Neuro: Alert and responsive Abdomen: Soft (mildly distended) Skin: No rashes noted on visualized skin Musculoskeletal: No Chest Wall Tenderness Extremities: Normal Pulses, Other (trace BLE edema) Results 12/29/16 06:09 12/30/16 04:17 Lab Results 12/30/16 04:17 Sodium 143 D Potassium 3.7 Chloride 101 Carbon Dioxide 31 H BUN 24 Creatinine 0.99 Glucose 109 H Calcium 8.8 Active Medications Albuterol/Ipratropium (Duoneb) 3 ml IH [id number] PRN; Protocol PRN Reason: Shortness Of Breath/Wheezing Stop: 06/29/17 14:10 Last Admin: 12/29/16 01:10 Dose: 3 ml Aspirin (Aspirin) 81 mg PO DAILY [facility] Stop: 07/02/17 09:01 Atorvastatin Calcium (Lipitor) 40 mg PO HS JULIO C Stop: 06/30/17 21:01 Last Admin: 12/29/16 21:24 Dose: 40 mg Azithromycin (Zithromax) 500 mg PO Q24H JULIO C Stop: 01/01/17 12:01 Carvedilol (Coreg) 3.125 mg PO BIDWM JULIO C PRN Reason: Protocol Stop: 06/30/17 08:01 Last Admin: 12/30/16 08:55 Dose: 3.125 mg Fluticasone Propionate (Flonase) 50 mcg NS QPM JULIO C PRN Reason: Protocol Stop: 06/29/17 18:01 Last Admin: 12/29/16 17:44 Dose: 50 mcg Guaifenesin (Mucinex) 600 mg PO Q12H PRN PRN Reason: cough Stop: 06/29/17 14:07 Heparin Sodium (Porcine) (Heparin) 5,000 unit SQ Q12HCO JULIO C Stop: 06/29/17 19:01 Last Admin: 12/30/16 06:07 Dose: 5,000 unit Hydralazine HCl (Hydralazine) 10 mg IVP Q6HR PRN PRN Reason: Hypertension Stop: 06/29/17 15:05 Furosemide 240 mg/ Dextrose 120 mls @ 5 mls/hr IVC .Q24H JULIO C PRN Reason: 10 MG/HR Stop: 06/30/17 14:17 Last Admin: 12/29/16 15:12 Dose: 10 mg/hr, 5 mls/hr Loratadine (Claritin) 10 mg PO DAILY JULIO C PRN Reason: Protocol Stop: 06/30/17 09:01 Last Admin: 12/30/16 08:55 Dose: 10 mg Lorazepam (Ativan) 2 mg IVP Q1H PRN PRN Reason: CIWA>10 Stop: 06/30/17 14:17 Lorazepam (Ativan) 4 mg IVP Q1H PRN PRN Reason: CIWA>20 Stop: 06/30/17 14:17 Lorazepam (Ativan) 1 mg IVP Q2HR PRN PRN Reason: Agitation Stop: 06/30/17 14:17 Last Admin: 12/29/16 21:32 Dose: 1 mg Metoprolol Tartrate (Lopressor) 5 mg IVP Q5MIN PRN PRN Reason: heart rate greater than 130 Stop: 12/31/16 11:31 Last Admin: 12/29/16 11:55 Dose: 5 mg Morphine Sulfate (Morphine Sulfate) 1 mg IVP Q3H PRN PRN Reason: Pain Stop: 06/30/17 22:15 Last Admin: 12/29/16 22:34 Dose: 1 mg Naloxone HCl (Narcan) 0.4 mg IVP Q2MIN PRN PRN Reason: Opioid Reversal Stop: 06/29/17 14:11 Nicotine (Nicoderm) 21 mg TD DAILY JULIO C PRN Reason: Protocol Stop: 06/29/17 15:16 Last Admin: 12/30/16 08:54 Dose: 21 mg Nitroglycerin (Nitroglycerin) 0.4 mg SL Q5MIN PRN PRN Reason: Chest Pain Stop: 06/30/17 10:53 Ondansetron HCl (Zofran) 4 mg IVP Q6HR PRN PRN Reason: Nausea And Vomiting Stop: 06/29/17 14:11 Potassium Chloride (Potassium Chloride) 10 meq PO DAILY JULIO C Stop: 07/01/17 09:01 Last Admin: 12/30/16 08:54 Dose: 10 meq Prednisone (Prednisone) 40 mg PO DAILY JULIO C Stop: 06/30/17 10:16 Last Admin: 12/30/16 08:55 Dose: 40 mg - Imaging and Cardiology Echo: report reviewed Cardiac cath: report reviewed Other Results: 12 hour tele: avg EJ=251 ST. No significant event noted. - EKG Interpretation EKG results cardiology: personally reviewed Consult Discharge Plan - Plan Referrals: Ruchi Rodrigez OIL DEVELOPER [Primary Care Provider] - (web request)
[2016-12-30] MEDS ORDERED: Acetaminophen 325 MG TABLET PO PRN (12:40)
--- NOTE | 2016-12-30 12:40 | Internal Med Progress Note ---
Date of Encounter: 12/30/16 Time of Encounter: 12:37 - Assessment and plan (1) Acute exacerbation of CHF (congestive heart failure) Current Visit: Yes Status: Acute Assessment and plan: Acute respiratory distress likely secondary to combination of possible acute systolic CHF exacerbation (ETOH related CMP) with also acute COPD exacerbation secondary to acute bronchitis viral versus bacterial/early community-acquired pneumonia Acute systolic CHF--patient reports progressive symptoms over the past year. TTE: EF 15%, severely dilated LV, severe global LV systolic dysfunction, RV mildly dilated & hypokinetic, mild MR. LHC on 12/29/16 (EKG ST lat depression developed HR 130 and BP 80s): moderate PH, coronaries are angiographically free of disease. HF non-ischemic in etiology--likely secondary to hx of ETOH abuse, reports 30+ year hx, at least 2-4 beers/day & 2-4 shots of liquor per day. Chest x-ray shows pulmonary vascular congestion with acute pulmonary edema, pneumonia cannot be excluded Continue with IV Lasix 80 mg BID, strict I's and nose and daily weight *Prednisone and azithromycin DuoNeb nebs and oxygen therapy Qualifiers: Congestive heart failure type: unspecified congestive heart failure type Qualified Code(s): I50.9 - Heart failure, unspecified (2) Acute exacerbation of chronic obstructive airways disease Current Visit: Yes Status: Acute (3) Cigarette smoker Current Visit: Yes Status: Acute Assessment and plan: Smoking cessation counseling given for 5 min Nicotine patch (4) Hypertension Current Visit: Yes Status: Acute Qualifiers: Hypertension type: essential hypertension Qualified Code(s): I10 - Essential (primary) hypertension (5) Hypokalemia Current Visit: Yes Status: Acute Assessment and plan: replete as needed high risk due to pulm edema and possible PNA (6) Alcohol abuse Current Visit: Yes Status: Chronic Assessment and plan: drank heavily 6 years ago, now says he drinks only once in a while and can go without drinking for a few days without problems. Hold librium Continue Ativan per CIWA scale High risk of resp failure. - Time Spent With Patient Greater than 35 minutes - Subjective Interval history: Still feeling short of breath, is bringing up whitish/clear phlegm. Denies any chest pain, no abdominal pain, no dysuria, no fevers overnight. - Constitutional Vitals: Temp Pulse Resp BP Pulse Ox 97.8 F 78 16 101/66 97 12/30/16 11:28 12/30/16 11:28 12/30/16 11:28 12/30/16 11:28 12/30/16 11:28 General appearance: Present: cooperative, A&O X 3, morbidly obese, pleasant, no acute distress, answers questions appropriately - Head Head exam: Present: atraumatic, normocephalic - Eye Eye exam: Present: PERRL, conjuntiva pink, sclera anicteric Pupils: Present: PERRL - Neck Neck exam general surgery: Present: supple, trachea midline. Absent: lymphadenopathy - Respiratory Respiratory exam: Present: decreased breath sounds, CTAB, rales (B/L diffuse crackeles and minimal wheezing). Absent: accessory muscle use, rhonchi, wheezes - Cardiovascular Cardiovascular exam: Present: RRR, +S1, +S2. Absent: diastolic murmur, gallop, rubs, systolic murmur - GI/Abdominal GI/Abdominal exam: Present: normal bowel sounds, soft, no peritoneal signs. Absent: distended, tenderness - Extremities Exam Extremities exam: Present: warm, radial pulses palpable and symetrical. Absent : calf tenderness, cyanotic, pedal edema Additional comments: +1 pitting edema both lower extremities. Right groin no hematoma from cath - Neurological Exam Neurological exam: Present: CN II-XII intact, oriented X3, no focal deficits. Absent: pronater drift, facial droop, speech deficit - Skin Skin exam: Present: dry, intact Internal Medicine: Result - Labs CBC & Chem 7: 12/29/16 06:09 12/30/16 04:17 Labs: BMP 12/30/16 04:17 Sodium 143 D Potassium 3.7 Chloride 101 Carbon Dioxide 31 H BUN 24 Creatinine 0.99 Glucose 109 H Calcium 8.8 - ABG Interpretation ABG results: PT/INR, D-dimer PT 12.6 Seconds (9.4-12.1) H 12/28/16 11:30 Consult Discharge Plan - Plan Referrals: Ruchi Rodrigez [employer]CHIT[employer] [Primary Care Provider] - (web request)
[2016-12-30] MEDS ORDERED: *HR* OxyCODONE/APAP 5/325 TABLET PO PRN (12:42)
[2016-12-30] MEDS: Azithromycin 250 MG TABLET PO SCH (13:25)
[2016-12-30] MEDS: Thiamine (B-1) 100 MG TABLET PO SCH (13:25)
[2016-12-30] MEDS: Folic Acid 1 MG TABLET PO SCH (13:26)
--- NOTE | 2016-12-30 14:14 | Invasive Diagnostic Lab Proc ---
Name: Carter Griffiht Date of Study: 12/29/2016 Date: 1965 Ht: 70.9in Medical Record#: [id number] Age: 51 Wt: 249.12lb Gender: Male BSA: 2.31 Order #: [id number] BMI: 34.88 Physicians Procedure Physician: Bryon Stephens MD Referring MD: Ruchi Rodrigez CNP Referring MD: Staff Name Position Time In Esther Alford RN Wire Drawing Machine Tender 01:18 PM Jorge Pacheco RN Monitor 01:18 PM Shauna Hendrickson RT (R) Scrub 01:18 PM Indications Indication Unstable Angina Procedures Performed Procedure R HRT CORONARY ARTERY ANGIO Pre-Procedure Checklist Informed consent is complete signed and on chart. H\\T\\P is on chart. ID band is on and ID verified with patient. Patient NPO for procedure The procedure was described for the patient and questions were answered. Blood Pressure: 87/50 ECG is on chart. Rhythm: Sinus Tachycardia Plan of Care Patient will tolerate the procedure without complications. Adequate level of comfort will be maintained. Hemodynamics will remain stable Patient will recover from procedure without complications. Respiratory function will be maintained. Cardiac rhythm will remain stable. Patient temperature will be maintained. Patient and/or family have verbalized understanding of the procedure. Patient Education Chief Complaint/Reason for Test: Cardiac Cath Developmental Category: Adult (18-64 years) Developmentally Appropriate for Age: Yes Learning Barriers: None Education Needs: Procedure Education Method: Verbal Information Taught: Cardiac Cath Educational Evaluation: Able to repeat information Intravenous Access Time IV Size Location DC'd Fluid/Drip Rate Units RN 12:36 PM 20g 1 11/27" Patent On Arrival Rt Antecubital 0.9NaCl 25 ml/hr Jorge Pacheco RN Allergies meperidine Vital Signs Time BP (mmHg) HR (bpm) O2 Sat. RR (bpm) LOC 12:34 PM 87 / 50 118 99 % 18 5 = Fully awake and oriented or at pre-proc level 01:19 PM / % 5 = Fully awake and oriented or at pre-proc level 01:19 PM / % 5 = Fully awake and oriented or at pre-proc level 01:08 PM 104 / 81 121 100 % 01:13 PM 111 / 88 119 100 % 01:18 PM 99 / 48 121 100 % 16 01:23 PM 127 / 89 122 100 % 26 01:28 PM 118 / 89 121 99 % 13 01:33 PM 107 / 77 119 100 % 13 01:38 PM 113 / 61 116 99 % 13 01:43 PM 113 / 64 117 99 % 20 01:48 PM 114 / 42 120 100 % 17 01:53 PM 103 / 62 115 100 % 23 01:58 PM 112 / 76 114 99 % 22 02:03 PM 113 / 76 117 100 % 17 02:08 PM 111 / 70 115 100 % 20 Procedural Medications Time Medication Dose Units Method Given By 01:19 PM Oxygen 6 L/min simple face mask Esther Alford RN 01:28 PM Lasix 80 mg Intravenous Esther Alford RN 01:33 PM Lidocaine 2% 16 ml Subcutaneous Bryon Stephens MD 02:18 PM Morphine 2 mg IV Esther Alford RN ASA Classification: CLASS III- Severe systemic disease (i.e. prior AMI, diabetes with vascular complications, morbid obesity) Nickie Score Preprocedure Postprocedure Activity 2- Moves 4 extremities sustained head lift Activity 2- Moves 4 extremities sustained head lift Circulation 2- SBP +/= 20 points of pre-anesthetic level Circulation 2- SBP +/= 20 points of pre-anesthetic level Consciousness 2- Awake and alert oriented x 3 Consciousness 2- Awake and alert oriented x 3 O2 Saturation 2- Able to maintain O2 satruation of 92% on room air O2 Saturation 2- Able to maintain O2 satruation of 92% on room air Respiratory 2- Able to deep breathe and cough well Respiratory 2- Able to deep breathe and cough well Total Score 10 Total Score 10 Contrast Agent: Isovue Diagnostic Contrast: 34 ml Total Contrast: 34 ml Fluoro Dose: 1238 mGy Procedure Log Time Note Enter By 12:27 PM CathStat 01:07 PM Vitals capture started with the following parameters, Patient=Adult, Interval=5 min, Initial Lzdyekgl=353 mmHg, Deflation Rate=5 mmHg, Cuff placed on Left Leg 01:08 PM PS=345 bpm, XBBV=278/81 mmhg, FyR3=603.0 %, Comment=Sinus Tach 01:13 PM QM=884 bpm, WGYL=764/88 mmhg, DvU2=244.0 %, Comment=Sinus Tach 01:18 PM Pt arrived to bolt labeler 2 at 13:18 csmith 01:18 PM Parsley, Esther RN Position: Wire Drawing Machine Tender Time in: :18 csmith 01:18 PM Jorge Pacheco RN Position: Monitor Time in: : csmith :18 PM Shauna Hendrickson RT (R) Position: Scrub Time in: :18 csmith 01:18 PM TL=730 bpm, NIBP=99/48 mmhg, YeL5=122.0 %, Resp=16 B/min, Comment=Sinus Tach :18 PM Patient charges- Angio tray pack, Navilyst 3mm J, Pulse Oximetry and ACIST tubing and transducer csmith 01:18 PM Case Delayed No csmith :18 PM Physician arrived : csmith :18 PM Meet and greet completed csmith : PM Sign in performed according to hospital policy. csmith :18 PM Procedure start : csmith :18 PM short of breath unable to lay flat. Dr. Ramirez at bedside. Orders received for lasix and saenz insertion. Wedge provided and O2 per mask. csmith : PM Time: : Oxygen on at 6 L/min per simple face mask by Esther Alford RN csmith : PM Time: 13:19 Patient comfortable and pain free: Yes csmith : PM Time: 13:19LOC: 5 = Fully awake and oriented or at pre-proc level csmith 01:20 PM ASA Class CLASS III- Severe systemic disease (i.e. prior AMI, diabetes with vascular complications, morbid obesity) csmith 01:20 PM Saenz catheter inserted without difficulty per Nikki Pacheco RN Positive urine return (approx 50ml returned) csmith 01:23 PM GP=516 bpm, WTEE=993/89 mmhg, OyL6=599.0 %, Resp=26 B/min, Comment=Sinus Tach : PM JA=740 bpm, BTCN=540/89 mmhg, SpO2=99.0 %, Resp=13 B/min, Comment=Sinus Tach : PM Time: 13: Lasix 80 mg Intravenous Given by Esther Alford RN (given over 8 minutes) csmith 01:33 PM VX=717 bpm, FZVY=255/77 mmhg, IuK7=155.0 %, Resp=13 B/min, Comment=Sinus Tach : PM Sign in performed according to hospital policy. csmith 01:33 PM Procedure start 13:33 csmith 01:33 PM Case Start 01:33 PM Time out performed according to hospital policy csmith 01:34 PM Time: 13:33 16 ml Lidocaine 2% to right groin Subcutaneous Given by Bryno Stephens MD csmith 01:34 PM Time: 13:19 Patient comfortable and pain free: Yes csmith 01:34 PM Access obtained by percutaneous puncture. 7Fr 10cm Terumo Lillian sheath placed in right Femoral vein. [id number] csmith 01:35 PM Access obtained by percutaneous puncture. 6Fr 11cm Terumo Lillian sheath placed in right Femoral artery. [id number] csmith 01:35 PM Pressure channel 1 zeroed. 01:38 PM 7 F [facility] [place] straight tip inserted through venous sheath csmith 01:38 PM EL=105 bpm, RXYL=581/61 mmhg, SpO2=99.0 %, Resp=13 B/min, Comment=Sinus Tach 01:38 PM 0.025 180cm Guideright wire [id number] csmith 01:39 PM unable to advance PAC into PA, removing PAC and will attempt with 5fr PAC csmith 01:40 PM 5 F DeRoyal straight tip inserted through venous sheath csmith 01:43 PM FY=784 bpm, UMWO=303/64 mmhg, SpO2=99.0 %, Resp=20 B/min, Comment=Sinus Tach 01:45 PM PAC into PA, obtaining sat csmith 01:48 PM Recorded Pressure: MPA, HY=081, Condition=Condition 1 (Main Pulmonary Artery) MPA 51/44/47* 01:48 PM VZ=209 bpm, UIMK=348/42 mmhg, TiY6=782.0 %, Resp=17 B/min, Comment=Sinus Tach 01:48 PM Saturation: Site=PA (Pulmonary Artery) , O2=50.2 %, Hgb=12.6 gm/dl, Condition=Condition 1. Used in calculation. 01:49 PM Time: 13:34 Patient comfortable and pain free: Yes csmith 01:50 PM Recorded Pressure: PCW, CQ=028, Condition=Condition 1 (Pulmonary Capillary Wedge) PCW 43/42/41* 01:51 PM Pressure channel 1 zeroed. 01:51 PM Recorded Pressure: RA, BP=179, Condition=Condition 1 (Right Atrium) RA 31/29/29 01:52 PM Recorded Pressure: RV, YB=138, Condition=Condition 1 (Right Ventricle) RV 49/34/36 01:53 PM HO=938 bpm, MLMG=847/62 mmhg, RyY5=401.0 %, Resp=23 B/min, Comment=Sinus Tach 01:54 PM 5Fr FL 4 catheter inserted over the wire DN csmith 01:54 PM 0.035 145cm Navilyst 3mmJ wire [id number] csmith 01:54 PM Recorded Pressure: Ao, UN=377, Condition=Condition 1 (Aorta) Ao 96/87/91 01:55 PM LCA angiography performed in multiple views. csmith 01:55 PM Saturation: Site=Ao (Aorta) , O2=99 %, Hgb=12.6 gm/dl, Condition=Condition 1. Used in calculation. 01:56 PM Catheter removed csmith 01:56 PM 5Fr FR 4 catheter inserted over the wire [facility] csmith 01:57 PM RCA angiography performed in multiple views. csmith 01:57 PM Catheter removed csmith 01:57 PM 5Fr Pigtail catheter inserted over the wire [facility] csmith 01:57 PM Catheter selectively placed in left ventricle csmith 01:58 PM Recorded Pressure: LV, WJ=523, Condition=Condition 1 (Left Ventricle) LV 104/39/40 01:58 PM Recorded Pressure: LV, Ao, BE=356, Condition=Condition 1 (Left Ventricle) LV 102/37/39, (Aorta) Ao 103/84/92 01:58 PM JX=000 bpm, BQYV=644/76 mmhg, SpO2=99.0 %, Resp=22 B/min, Comment=Sinus Tach 01:59 PM no LV angiogram completed csmith 02:00 PM catheter removed and wire removed csmith 02:00 PM Procedure completed at 14:00 csmith 02:01 PM Sign out completed: Radiation Dose 1238 mGy Fluoro Time: 10 Isovue 370 - 200ml contrast 34 ml given by Bryon Stephens MD. Complications: NoneCardiac Rehab Consult needed: YesConfirmed administered medications: Yes csmith 02:01 PM Isovue 370 - 200ml,1 Bottle(s) used. csmith 02:01 PM Post ECG Sinus Tachycardia csmith 02:01 PM Post Blood Pressure 112/76 csmith 02:01 PM 14:01 Post Pulses Bilateral DP \\T\\ PT 1+ csmith 02:01 PM Information taught Cardiac Cath csmith 02:01 PM Learning barriers :None csmith 02:01 PM Education Methods Verbal csmith 02:01 PM Education evaluation Able to repeat information csmith 02:01 PM Plavix, Effient or Brilinta given No csmith 02:01 PM Family placed in consult room. csmith 02:03 PM NP=312 bpm, BAPN=870/76 mmhg, HuN3=920.0 %, Resp=17 B/min, Comment=Sinus Tach 02:05 PM Time: 13:49 Patient comfortable and pain free: Yes csmith 02:05 PM Time: 13:19LOC: 5 = Fully awake and oriented or at pre-proc level csmith 02:05 PM arterial sheath pulled at 1404 csmith 02:07 PM venous sheath pulled at 1406 csmith 02:08 PM IU=171 bpm, WHQD=917/70 mmhg, JnT3=708.0 %, Resp=20 B/min, Comment=Sinus Tach 02:19 PM Time: 14:18 Morphine 2 mg IV Given by Esther Alford RN csmith 02:24 PM [facility]: [facility] Complications Complication None Hemodynamics Pressures Site Systolic/A Wave Diastolic/V Wave Mean MPA 51 44 47 PCW 43 42 41 RA 31 29 29 RV 49 34 36 AO 96 87 91 LV 104 39 40 LV 102 37 39 AO 103 84 92 Oximetry Site Saturation PA 50.2 PA 50.2 AO 99 AO 99 Post Procedure Information Blood Pressure: 112/76 mmHg Rhythm: Sinus Tachycardia Post procedural instructions were given Closure Device Time Device Success/Fail 12/29/2016 2:07:00 PM manual compression Successful Site Checks Time Location Status Staff Sheath In? Note 02:20 PM Rt Groin No bleeding/ No Hematoma Esther Alford RN Pulses Time Site Pre-Procedure Post-Procedure Note 12/29/2016 12:37:00 PM Bilateral DP \\T\\ PT 1+ 12/29/2016 12:37:00 PM Bilateral radial 2+ 2:01:00 PM Bilateral DP \\T\\ PT 1+ Updated by Radha Rapp, RT (R) on 12/30/2016 2:08:23 PM electronically signed on 12/30/2016 2:09:03 PM with status of Final
[2016-12-30] MEDS: Ipratropium/Albuterol Neb 3 ML IH PRN ×2 (15:52→21:11)
[2016-12-30] MEDS: Fluticasone Propionate Nasal 50 MCG/SPRAY BOTTLE NS SCH (16:34)
--- NOTE | 2016-12-30 17:35 | Electrocardiograph Report ---
[address] [place] [address] Test Date: 2016-12-29 Pat Name: Carter Griffith Department: 112 Room: 2A34 Gender: M Tile Fitter: : 1965 Requested By: Daniel Johnson Order Number: [id number] Reading MD: Amaris Castaneda Measurements Intervals [place] Rate: 119 P: 34 [place]: 119 QRS: -47 QRSD: 122 T: 88 QT: 325 QTc: 396 Interpretive Statements SINUS TACHYCARDIA WITH SHORT [place] INTERVAL POSSIBLE LEFT ATRIAL ENLARGEMENT LEFT AXIS DEVIATION INTRAVENTRICULAR CONDUCTION DELAY ST DEVIATION AND MODERATE T-WAVE ABNORMALITY, CONSIDER LATERAL ISCHEMIA Electronically Signed On 12-30-2016 17:33:23 EST by Amaris Castaneda
--- NOTE | 2016-12-30 17:37 | Electrocardiograph Report ---
[address] [place] [address] Test Date: 2016-12-29 Pat Name: Carter Griffith Department: 112 Room: 2A34 Gender: M Supervisor Body Assembly: : 1965 Requested By: Daniel Johnson Order Number: [id number] Reading MD: Amaris Castaneda Measurements Intervals [place] Rate: 112 P: 54 [place]: 152 QRS: -46 QRSD: 122 T: 130 QT: 336 QTc: 403 Interpretive Statements SINUS TACHYCARDIA MARKED LEFT AXIS DEVIATION LEFT ANTERIOR FASCICULAR BLOCK INTRAVENTRICULAR CONDUCTION DELAY ST DEVIATION AND MODERATE T-WAVE ABNORMALITY, CONSIDER LATERAL ISCHEMIA Electronically Signed On 12-30-2016 17:36:39 EST by Amaris Castaneda
[2016-12-30] MEDS: Furosemide 40 MG/4 ML VIAL IVP SCH (20:48)
[2016-12-31] MEDS: Ipratropium/Albuterol Neb 3 ML IH PRN (03:34)
[2016-12-31 04:50] LABS: BUN/Creatinine Ratio 33 (6-26); Blood Urea Nitrogen 28 mg/dL (8-26); Carbon Dioxide 30 mEq/L (19-29); Chloride 100 mEq/L (98-109); Glucose 106 mg/dL (70-99); Osmolality,Calculated 304 (280-300); Sodium 144 mEq/L (136-145); eGFR For African Americans > 60 (> 60); eGFR For Non-African Americans > 60 (> 60)
[2016-12-31 04:51] LABS: Potassium 3.7 mEq/L (3.5-4.5)
[2016-12-31] MEDS: *HR* Heparin 5,000 UNIT/ML VIAL SQ SCH ×2 (05:57→20:34)
[2016-12-31] MEDS: Loratadine 10 MG TABLET PO SCH (08:42)
[2016-12-31] MEDS: Thiamine (B-1) 100 MG TABLET PO SCH (08:42)
[2016-12-31] MEDS: predniSONE 20 MG TABLET PO SCH (08:43)
[2016-12-31] MEDS: Furosemide 40 MG/4 ML VIAL IVP SCH ×2 (08:43→16:37)
[2016-12-31] MEDS: Nicotine 21 MG PATCH.TD24 TD SCH (08:43)
[2016-12-31] MEDS: Folic Acid 1 MG TABLET PO SCH (08:43)
[2016-12-31] MEDS: Aspirin Enteric Coated 81 MG Tablet PO SCH (08:43)
[2016-12-31] MEDS ORDERED: Aspirin 325 MG TABLET PO SCH (09:00)
--- NOTE | 2016-12-31 09:50 | Cardiology Progress Note ---
Date of Encounter: 12/31/16 Time of Encounter: 09:00 Assessment and Plan (1) CHF (congestive heart failure) Current Visit: Yes Status: Acute Acute systolic CHF--patient reports progressive symptoms over the past year. TTE: EF 15%, severely dilated LV, severe global LV systolic dysfunction, RV mildly dilated & hypokinetic, mild MR. LHC: moderate PH, coronaries are angiographically free of disease. HF non-ischemic in etiology--likely secondary to hx of ETOH abuse, reports 30+ year hx, at least 2-4 beers/day & 2-4 shots of liquor per day. Symptoms continue to improve--still complains of orthopnea and dyspnea with minimal exertion. 24 I&O: -3555 mL, cumulative -7620 mL. Continue IV lasix for additional 24 hours; plan to change to oral tomorrow. Continue betablocker--increase once euvolemic. Start ACEi/ARB when BP will tolerate/euvolemic. Strict I&O's, daily weights, and fluid restriction diet. CHF teaching provided. Will need teaching reinforced throughout hospital stay. Will need 1 week f/u with [facility] upon discharge. Re-evaluate LVEF after 3 months of GDMT. Qualifiers: Congestive heart failure type: systolic Congestive heart failure chronicity : acute Qualified Code(s): I50.21 - Acute systolic (congestive) heart failure (2) Non-ischemic cardiomyopathy Current Visit: Yes Status: Acute plan as above. (3) Alcohol abuse Current Visit: Yes Status: Chronic ETOH cessation counseling. [facility] protocol. (4) Tobacco abuse Current Visit: Yes Status: Chronic Smoking cessation counseling given. Discussion w patient/family: The assessment and plan as outlined above was discussed with the patient and/or family members who expressed understanding and agreement. All questions were answered. Thank you for involving us in the care of your patient. Please call with any questions. The patient will be discussed and reviewed with Dr. Tavon Haider; changes to be made accordingly. Subjective Principal diagnosis: Non-ischemic cardiomyopathy; acute sCHF Interval history: Seen and examined. Reports abdominal fullness, lower extremity edema, and shortness of breath improving--not yet at baseline. Reports dyspnea with minimal exertion has improved. Denies events overnight. Objective Vital Signs, Last 4 Hours Temp Pulse Resp BP Pulse Ox 12/31/16 08:48 98 12/31/16 07:29 97.7 F 102 16 97/65 98 12/31/16 05:58 97.9 F 107 20 97/65 96 General: Conversant, No Apparent Distress HEENT: Atraumatic, Normocephaly Cardiac: Reg Rate and Rhythm (tachycardiac), Normal S1 and S2 Lungs: Other (Diminished bibasilar; wheezes) Neuro: Alert and responsive Abdomen: Soft Skin: No rashes noted on visualized skin Musculoskeletal: No Chest Wall Tenderness Extremities: Other (trace BLE) Results 12/29/16 06:09 12/31/16 04:09 Lab Results 12/31/16 04:09 Sodium 144 Potassium 3.7 Chloride 100 Carbon Dioxide 30 H BUN 28 H Creatinine 0.86 Glucose 106 H Calcium 9.0 - EKG Interpretation EKG results cardiology: personally reviewed Consult Discharge Plan - Plan Referrals: Ruchi Rodrigez [employer]ACH [Primary Care Provider] - (web request)
[2016-12-31] MEDS: Azithromycin 250 MG TABLET PO SCH (12:04)
--- NOTE | 2016-12-31 14:42 | Internal Med Progress Note ---
Date of Encounter: 12/31/16 Time of Encounter: 14:40 - Assessment and plan (1) Acute exacerbation of CHF (congestive heart failure) Current Visit: Yes Status: Acute Assessment and plan: as per cardiology: Acute systolic CHF--patient reports progressive symptoms over the past year. TTE: EF 15%, severely dilated LV, severe global LV systolic dysfunction, RV mildly dilated & hypokinetic, mild MR. LHC: moderate PH, coronaries are angiographically free of disease. HF non-ischemic in etiology--likely secondary to hx of ETOH abuse, reports 30+ year hx, at least 2-4 beers/day & 2-4 shots of liquor per day. Symptoms continue to improve--was noted to be walking in the hallway without any sob and chest pain. Continue IV lasix for additional 24 hours; plan to change to oral tomorrow. Continue betablocker. Start ACEi/ARB when BP will tolerate/euvolemic. Strict I&O's, daily weights, and fluid restriction diet. Qualifiers: Congestive heart failure type: unspecified congestive heart failure type Qualified Code(s): I50.9 - Heart failure, unspecified (2) COPD (chronic obstructive pulmonary disease) Current Visit: Yes Status: Acute Assessment and plan: stable. will stop steroids after 5 days. his symptoms most likley from CHF exacerbation than COPD/ Qualifiers: COPD type: unspecified COPD Qualified Code(s): J44.9 - Chronic obstructive pulmonary disease, unspecified (3) Cigarette smoker Current Visit: Yes Status: Acute Assessment and plan: Smoking cessation counseling given for 5 min Nicotine patch (4) Hypertension Current Visit: Yes Status: Acute Qualifiers: Hypertension type: essential hypertension Qualified Code(s): I10 - Essential (primary) hypertension (5) Hypokalemia Current Visit: Yes Status: Acute Assessment and plan: replete as needed high risk due to pulm edema and possible PNA (6) Alcohol abuse Current Visit: Yes Status: Chronic Assessment and plan: drank heavily 6 years ago, now says he drinks only once in a while and can go without drinking for a few days without problems. Hold librium Continue Ativan per CIWA scale High risk of resp failure. - Subjective Interval history: Patient seen at the bedside, denies any complaints. Reports that he does not have any chest pain or shortness of breath. Walking on the hallway without any discomfort. Was being seen by cardiology, recommended 1 more day of IV Lasix. Plan for DC tomorrow. - Constitutional Vitals: Temp Pulse Resp BP Pulse Ox 98 F 109 16 106/73 96 12/31/16 10:59 12/31/16 10:59 12/31/16 10:59 12/31/16 10:59 12/31/16 10:59 General appearance: Present: cooperative, A&O X 3, morbidly obese, pleasant, no acute distress, answers questions appropriately Exam: General appearance: Present: cooperative, A&O X 3, morbidly obese, pleasant, no acute distress, answers questions appropriately - Head Head exam: Present: atraumatic, normocephalic - Eye Eye exam: Present: PERRL, conjuntiva pink, sclera anicteric Pupils: Present: PERRL - Neck Neck exam general surgery: Present: supple, trachea midline. Absent: lymphadenopathy - Respiratory Respiratory exam: Present: Bilaterally clear. Absent: accessory muscle use, rhonchi, wheezes - Cardiovascular Cardiovascular exam: Present: RRR, +S1, +S2. Absent: diastolic murmur, gallop, rubs, systolic murmur - GI/Abdominal GI/Abdominal exam: Present: normal bowel sounds, soft, no peritoneal signs. Absent: distended, tenderness - Extremities Exam Extremities exam: Present: warm, radial pulses palpable and symetrical. Absent : calf tenderness, cyanotic, pedal edema Additional comments: +1 pitting edema both lower extremities. Right groin no hematoma from cath - Neurological Exam Neurological exam: Present: CN II-XII intact, oriented X3, no focal deficits. Absent: pronater drift, facial droop, speech deficit - Skin Skin exam: Present: dry, intact Internal Medicine: Result - Labs CBC & Chem 7: 12/29/16 06:09 12/31/16 04:09 Labs: BMP 12/31/16 04:09 Sodium 144 Potassium 3.7 Chloride 100 Carbon Dioxide 30 H BUN 28 H Creatinine 0.86 Glucose 106 H Calcium 9.0 - ABG Interpretation ABG results: PT/INR, D-dimer PT 12.6 Seconds (9.4-12.1) H 12/28/16 11:30 Consult Discharge Plan - Plan Referrals: Ruchi Rodrigez CNP [Primary Care Provider] - 01/03/17 1:45 pm ()
[2016-12-31] MEDS: Fluticasone Propionate Nasal 50 MCG/SPRAY BOTTLE NS SCH (16:38)
[2017-01-01] MEDS: *HR* Heparin 5,000 UNIT/ML VIAL SQ SCH (06:42)
[2017-01-01 07:10] VITALS: BP 111/74
[2017-01-01] MEDS ORDERED: Furosemide 40 MG TABLET PO SCH (08:00)
--- NOTE | 2017-01-01 08:05 | Cardiology Progress Note ---
Date of Encounter: 01/01/16 Time of Encounter: 08:15 Assessment and Plan (1) CHF (congestive heart failure) Current Visit: Yes Status: Acute Acute systolic CHF--patient reports progressive symptoms over the past year. TTE: EF 15%, severely dilated LV, severe global LV systolic dysfunction, RV mildly dilated & hypokinetic, mild MR. LHC: moderate PH, coronaries are angiographically free of disease. HF non-ischemic in etiology--likely secondary to hx of ETOH abuse, reports 30+ year hx, at least 2-4 beers/day & 2-4 shots of liquor per day. Symptoms continue to improve; has been up and ambulating in hallways on room air. 24 I&O: -4230 mL, cumulative -97002 mL. Lasix changed to 40 mg BID. Recommend oral potassium supplementation at discharge. Agree with increase in Coreg; low dose ACEi started today. Strict I&O's, daily weights, and fluid restriction diet. CHF teaching provided including daily weights, low sodium diet, and 2L fluid restriction. Will need 1 week f/u with [facility] upon discharge--will arrange, appt. request sent via [facility]. Re-evaluate LVEF after 3 months of GDMT. Qualifiers: Congestive heart failure type: systolic Congestive heart failure chronicity : acute Qualified Code(s): I50.21 - Acute systolic (congestive) heart failure (2) Non-ischemic cardiomyopathy Current Visit: Yes Status: Acute plan as above. (3) Alcohol abuse Current Visit: Yes Status: Chronic ETOH cessation counseling. [facility] protocol. (4) Tobacco abuse Current Visit: Yes Status: Chronic Smoking cessation counseling given. Discussion w patient/family: The assessment and plan as outlined above was discussed with the patient and/or family members who expressed understanding and agreement. All questions were answered. Thank you for involving us in the care of your patient. Please call with any questions. The patient was discussed and reviewed with Dr. Tavon Haider; Cardiology will sign-off, follow-up in 1 week with [facility]. Subjective Principal diagnosis: Non-ischemic cardiomyopathy; acute sCHF Interval history: Seen and examined. Has been up and ambulating in room and hallways without significant symptoms and on room air. Denies chest pain or discomfort or other symptoms overnight. Objective Vital Signs, Last 4 Hours Temp Pulse Resp BP Pulse Ox 01/01/17 07:00 98.0 F 114 17 111/74 96 General: Conversant HEENT: Atraumatic, Normocephaly Cardiac: Reg Rate and Rhythm (tachycardiac) Lungs: Normal Breath Sounds Neuro: Alert and responsive Abdomen: Soft Skin: No rashes noted on visualized skin Musculoskeletal: No Chest Wall Tenderness Extremities: Normal Pulses, Other (mild BLE trace edema) Results 12/29/16 06:09 12/31/16 04:09 - Imaging and Cardiology Echo: report reviewed Cardiac cath: report reviewed - EKG Interpretation EKG results cardiology: personally reviewed Consult Discharge Plan - Plan Referrals: Ruchi Rodrigez CNP [Primary Care Provider] - 01/03/17 1:45 pm ()
[2017-01-01] MEDS: Loratadine 10 MG TABLET PO SCH (08:19)
[2017-01-01] MEDS: Thiamine (B-1) 100 MG TABLET PO SCH (08:19)
[2017-01-01] MEDS: predniSONE 20 MG TABLET PO SCH (08:19)
[2017-01-01] MEDS: Nicotine 21 MG PATCH.TD24 TD SCH (08:20)
[2017-01-01] MEDS: Aspirin Enteric Coated 81 MG Tablet PO SCH (08:20)
[2017-01-01] MEDS: Folic Acid 1 MG TABLET PO SCH (08:23)
--- NOTE | 2017-01-01 09:16 | Discharge Summary ---
Date of Encounter: 01/01/17 Time of Encounter: 09:11 - Discharge Diagnosis (1) Acute exacerbation of CHF (congestive heart failure) Priority: Primary Status: Acute Qualifiers: Congestive heart failure type: unspecified congestive heart failure type Qualified Code(s): I50.9 - Heart failure, unspecified (2) COPD (chronic obstructive pulmonary disease) Priority: Secondary Status: Acute Qualifiers: COPD type: unspecified COPD Qualified Code(s): J44.9 - Chronic obstructive pulmonary disease, unspecified (3) Cigarette smoker Priority: Secondary Status: Acute (4) Hypertension Priority: Secondary Status: Acute Qualifiers: Hypertension type: essential hypertension Qualified Code(s): I10 - Essential (primary) hypertension (5) Hypokalemia Priority: Secondary Status: Acute (6) Alcohol abuse Priority: Secondary Status: Chronic - Discharge Medications Prescriptions: Albuterol Sulfate [Albuterol Inhaler] 1 puff IH Q4HR PRN #4 inhaler PRN Reason: shortness of breath Nitroglycerin 0.4 mg SL Q5MIN PRN #30 tab.subl PRN Reason: Chest Pain Aspirin Enteric Coated [Aspirin EC] 81 mg PO DAILY #30 tablet. Atorvastatin [Lipitor] 40 mg PO HS #30 tablet Carvedilol [Coreg] 6.25 mg PO BIDWM #60 tablet Folic Acid 1 mg PO DAILY #30 tablet Furosemide [Lasix] 40 mg PO BIDDIURETIC #60 tablet Lisinopril [Zestril] 2.5 mg PO DAILY #30 tablet Nebulizer [Aeroeclipse] 1 each MC DAILY PRN #1 each PRN Reason: Shortness Of Breath Nicotine Patch [Nicoderm] 21 mg TD DAILY #20 patch.td24 Potassium Chloride 20 meq PO BID #60 tab.er.prt PredniSONE 40 mg PO DAILY #4 tablet Thiamine (B-1) [Vitamin B-1] 100 mg PO DAILY #30 tablet Home Medications: Cetirizine HCl [Zyrtec] 10 mg PO DAILY 11/13/16 [History] Fluticasone Propionate Nasal [Flonase] 50 mcg NS QPM 11/13/16 [History] Pseudoephedrine [Sudafed] 30 mg PO Q72H 11/13/16 [History] Albuterol Sulfate [Albuterol Inhaler] 1 puff IH Q4HR PRN #4 inhaler 01/01/17 [Rx ] Aspirin Enteric Coated [Aspirin EC] 81 mg PO DAILY #30 tablet.dr 01/01/17 [Rx] Atorvastatin [Lipitor] 40 mg PO HS #30 tablet 01/01/17 [Rx] Carvedilol [Coreg] 6.25 mg PO BIDWM #60 tablet 01/01/17 [Rx] Folic Acid 1 mg PO DAILY #30 tablet 01/01/17 [Rx] Furosemide [Lasix] 40 mg PO BIDDIURETIC #60 tablet 01/01/17 [Rx] Lisinopril [Zestril] 2.5 mg PO DAILY #30 tablet 01/01/17 [Rx] Nebulizer [Aeroeclipse] 1 each MC DAILY PRN #1 each 01/01/17 [Rx] Nicotine Patch [Nicoderm] 21 mg TD DAILY #20 patch.td24 01/01/17 [Rx] Nitroglycerin 0.4 mg SL Q5MIN PRN #30 tab.subl 01/01/17 [Rx] Potassium Chloride 20 meq PO BID #60 tab.er.prt 01/01/17 [Rx] PredniSONE 40 mg PO DAILY #4 tablet 01/01/17 [Rx] Thiamine (B-1) [Vitamin B-1] 100 mg PO DAILY #30 tablet 01/01/17 [Rx] Allergies/Adverse Reactions: Allergies meperidine [From Demerol] Adverse Reaction (Verified 12/28/16 13:32) Agitated Procedures/tests Complete & Pending: Procedures Performed prior 72 hours Category Date Time Status ECG 12 lead ECG [ECG] Routine Y 12/29/16 11:34 Completed Date of admission: 12/29/16 17:50 Primary care physician: Ruchi Rodrigez CNP Discharging clinician: Smita Cota Anticipated date of discharge: 01/01/17 - Patient Status Disposition: Home, Self-Care Condition: Fair Functional capacity at discharge: independent ambulation Overall status at discharge: patient is back to baseline - Discharge Instructions Instructions: Heart Failure (DC), Chronic Obstructive Pulmonary Disease (DC) Follow Up With: Mahi Herbert CNP [Partnered Physician] - 01/08/17 9:30 am Ruchi Rodrigez CNP [Primary Care Provider] - 01/03/17 1:45 pm () - Diet and Activity Diet: other (cardiac diet, fluid restriction to 1.5l/day) Interval History: Mr. Griffith is a 51 year old male with known PMH of seasonal allergies who presents to the ER for evaluation of shortness of breath. Patient states beginning of November he had a fall outdoors while hunting, landing on his left side and hurting his rib cage and since then he has been getting short of breath. 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 He also reports of noticing bilateral lower extremity edema which has worsened over the last week. He reports of productive cough with white sputum for the last week as well. He reports he has been having intermittent left sided chest pain and back pain between his shoulder blades since the fall, but attributed it to being bruised from the fall. Initial troponin yesterday was negative. Echo resulted today that shows EF 15%, severe global LV dysfunction. Mild MR. Cardiology was consulted. On my arrival, pt is diaphoretic, dizzy, hypotensive, ill appearing. He is complaining of active pain between his shoulder blades. EKG with ST depression. Admits to alcohol intake 2x week, a couple of drinks each time. Grandfather had MT in his 50s Hospital course: meri was admitted for possible Acute systolic CHF--patient reports progressive symptoms over the past year. TTE: EF 15%, severely dilated LV, severe global LV systolic dysfunction, RV mildly dilated & hypokinetic, mild MR. LHC: moderate PH, coronaries are angiographically free of disease. HF non-ischemic in etiology--likely secondary to hx of ETOH abuse, reports 30+ year hx, at least 2-4 beers/day & 2-4 shots of liquor per day. Symptoms continue to improve and is able to walk in the hallway without any distress. He was treated with IV Lasix which we changed to oral at the time of discharge.. His beta ellis was increased and low-dose ANTONIETA inhibitor has been started today. He is hemodynamically stable at this time, is being discharged today in stable condition. Strict I&O's, daily weights, and fluid restriction diet. CHF teaching provided. Will need 1 week f/u with [facility] upon discharge. Re-evaluate LVEF after 3 months of GDMT. Time spent discussing smoking cessation with patient: more than 10 minutes - Time Spent with Patient Total time spent providing and/or coordinating discharge services: Greater than 30 minutes - Constitutional Vitals: Temp Pulse Resp BP Pulse Ox 98.0 F 114 17 111/74 96 01/01/17 07:00 01/01/17 07:00 01/01/17 07:00 01/01/17 07:00 01/01/17 08:25 General appearance: Present: cooperative, A&O X 3, morbidly obese, pleasant, no acute distress, answers questions appropriately Exam: General appearance: Present: cooperative, A&O X 3, morbidly obese, pleasant, no acute distress, answers questions appropriately - Head Head exam: Present: atraumatic, normocephalic - Eye Eye exam: Present: PERRL, conjuntiva pink, sclera anicteric Pupils: Present: PERRL - Neck Neck exam general surgery: Present: supple, trachea midline. Absent: lymphadenopathy - Respiratory Respiratory exam: Present: Bilaterally clear. Absent: accessory muscle use, rhonchi, wheezes - Cardiovascular Cardiovascular exam: Present: RRR, +S1, +S2. Absent: diastolic murmur, gallop, rubs, systolic murmur - GI/Abdominal GI/Abdominal exam: Present: normal bowel sounds, soft, no peritoneal signs. Absent: distended, tenderness - Extremities Exam Extremities exam: Present: warm, radial pulses palpable and symetrical. Absent : calf tenderness, cyanotic, pedal edema Additional comments: +1 pitting edema both lower extremities. Right groin no hematoma from cath - Neurological Exam Neurological exam: Present: CN II-XII intact, oriented X3, no focal deficits. Absent: pronater drift, facial droop, speech deficit - Skin Skin exam: Present: dry, intact
== END 2017-01-01 10:59 | disposition home or self-care (01) | DRG 287 ==
LOC: EMEROO 11:11 → 2ANU 11:11 → ICNU 12-29 14:06 → 2ANU 12-29 14:16 → SUATTDRO 12-29 17:50
PROVIDERS: ADMIT Internal Medicine; ATTEND Internal Medicine Endocrinology, Diabetes & Metabolism

== ENCOUNTER 2021-09-08 04:31 | Inpatient (IN) ==
[2021-09-08 05:58] LABS: Basophils % 0.5 %; Eosinophils # 0.1 K/mcL (0.0-0.6); Eosinophils % 2.3 %; Hemoglobin 12.3 g/dL (12.9-16.9); Immature Granulocytes % 0.3 % (0-4); Lymphocytes # 0.9 K/mcL (0.6-4.6); Lymphocytes % 15.3 %; Mean Corpuscular HGB Conc 34.2 g/dL (31.6-35.5); Mean Corpuscular Hemoglobin 31.3 pg (28.0-33.3); Mean Corpuscular Volume 91.6 fL (83.0-100.0); Mean Platelet Volume 9.1 fL (9.4-12.4); Monocytes # 0.5 K/mcL (0.0-1.3); Monocytes % 8.6 %; Neutrophils # 4.4 K/mcL (1.6-8.9); Platelet Count 187 K/mcL (140-400); Red Blood Count 3.93 M/mcL (4.19-5.50); Red Cell Distribution Width 12.8 % (11.5-14.5)
[2021-09-08] MEDS ORDERED: Furosemide 40 MG/4 ML VIAL IVP ONE (06:00)
[2021-09-08 06:23] LABS: BUN/Creatinine Ratio 22 (6-26); Blood Urea Nitrogen 17 mg/dL (6-20); Calcium 8.9 mg/dL (8.6-10.3); Carbon Dioxide 29 mEq/L (23-29); Chloride 106 mEq/L (98-107); Glucose 116 mg/dL (70-105); Osmolality,Calculated 295 (280-300); Potassium 3.7 mEq/L (3.5-5.1); Sodium 141 mEq/L (136-145); Troponin I 0.04 ng/mL (< 0.04); eGFR For African Americans > 60 (> 60); eGFR For Non-African Americans > 60 (> 60)
[2021-09-08 07:34] LABS: Influenza A PCR Negative (Negative); Influenza B PCR Negative (Negative); Resp. Syncytial Virus PCR Negative (Negative)
[2021-09-08] MEDS ORDERED: Naloxone 0.4 MG/ML INJ IVP PRN ×2 (07:51→09:12)
[2021-09-08] MEDS ORDERED: Ondansetron 4 MG/2 ML VIAL IVP PRN (07:51)
[2021-09-08] MEDS ORDERED: Acetaminophen 325 MG TABLET PO PRN (07:51)
[2021-09-08 08:13] LABS: VBG HCO3 27 mEq/L (21-27); VBG PCO2 40 mmHg (41-51); VBG PH 7.44 pH Units (7.32-7.42); VBG PO2 92 mmHg (25-50)
[2021-09-08 08:15] LABS: SARS-CoV-2 by PCR (In House) Positive (Negative)
[2021-09-08] MEDS: Aspirin Enteric Coated 81 MG Tablet PO SCH (08:34)
[2021-09-08] MEDS: carvediloL 6.25 MG TABLET PO SCH ×2 (08:34→17:02)
[2021-09-08] MEDS ORDERED: Perflutren Lipid Microsphere 1.3 ML in 0.9 % Sodium Chloride 8.7 ML IVP PRN (09:30)
[2021-09-08] MEDS ORDERED: *HR* Heparin 5,000 UNIT/ML VIAL IVP ONE (09:45)
[2021-09-08] MEDS ORDERED: *HR* Heparin 5,000 UNIT/ML VIAL IVP PRN ×2 (09:45)
[2021-09-08] MEDS: Heparin 25,000UNIT/250ML 1/2NS 25,000 UNIT/250 ML IV.SOLN IVC SCH (10:51)
[2021-09-08] MEDS: Ipratropium 1 PUFF INHALER IH SCH ×4 (10:52→20:59)
[2021-09-08 11:08] LABS: INR 1.1
[2021-09-08 11:10] LABS: Activated Partial Thrombo Time 28.9 Seconds (26.0-36.0)
[2021-09-08 11:11] LABS: D-Dimer 725 ng/mLFEU (0-500); Heparin anti-factor XA UFH < 0.04 IU/mL (0.30-0.70)
[2021-09-08 11:41] LABS: Albumin 3.8 g/dL (3.5-5.7); Albumin/Globulin Ratio 1.7 (1.1-2.2); Bilirubin,Direct 0.1 mg/dL (0.0-0.2); Bilirubin,Indirect 0.4 mg/dL (0.0-1.0); Bilirubin,Total 0.5 mg/dL (0.3-1.0); Globulin 2.2 g/dL (2.4-3.5)
[2021-09-08 13:19] LABS: Troponin I 0.04 ng/mL (< 0.04)
[2021-09-08] MEDS ORDERED: Remdesivir 200 MG in 0.9 % Sodium Chloride 100 ML IVPB ONE (14:02)
[2021-09-08] MEDS ORDERED: FUROSEMIDE 40 MG PO SCH (17:00)
[2021-09-08] MEDS ORDERED: Fluticasone Propionate Nasal 50 MCG/SPRAY BOTTLE NS SCH (18:00)
[2021-09-09 00:57] LABS: Basophils % 0.4 %; Eosinophils # 0.2 K/mcL (0.0-0.6); Hematocrit 34.7 % (37.5-50.1); Hemoglobin 12.1 g/dL (12.9-16.9); Immature Granulocytes % 0.5 % (0-4); Lymphocytes # 0.9 K/mcL (0.6-4.6); Lymphocytes % 15.7 %; Mean Corpuscular HGB Conc 34.9 g/dL (31.6-35.5); Mean Corpuscular Hemoglobin 31.9 pg (28.0-33.3); Mean Corpuscular Volume 91.6 fL (83.0-100.0); Mean Platelet Volume 9.4 fL (9.4-12.4); Monocytes # 0.4 K/mcL (0.0-1.3); Monocytes % 7.8 %; Neutrophils # 4.1 K/mcL (1.6-8.9); Platelet Count 180 K/mcL (140-400); Red Blood Count 3.79 M/mcL (4.19-5.50); Red Cell Distribution Width 12.9 % (11.5-14.5); Segmented Neutrophils % 72.6 %; White Blood Count 5.6 K/mcL (4.3-11.1)
[2021-09-09 01:09] LABS: Heparin anti-factor XA UFH 0.43 IU/mL (0.30-0.70)
[2021-09-09 01:11] LABS: Albumin 3.4 g/dL (3.5-5.7); Albumin/Globulin Ratio 1.6 (1.1-2.2); Bilirubin,Direct 0.1 mg/dL (0.0-0.2); Bilirubin,Indirect 0.3 mg/dL (0.0-1.0); Bilirubin,Total 0.4 mg/dL (0.3-1.0); Globulin 2.1 g/dL (2.4-3.5); Total Protein 5.5 g/dL (6.4-8.9)
[2021-09-09 01:12] LABS: BUN/Creatinine Ratio 24 (6-26); Blood Urea Nitrogen 17 mg/dL (6-20); Calcium 9.3 mg/dL (8.6-10.3); Carbon Dioxide 29 mEq/L (23-29); Chloride 105 mEq/L (98-107); Glucose 122 mg/dL (70-105); Magnesium 1.8 mg/dL (1.6-2.6); Osmolality,Calculated 291 (280-300); Potassium 3.3 mEq/L (3.5-5.1); Sodium 139 mEq/L (136-145); eGFR For African Americans > 60 (> 60); eGFR For Non-African Americans > 60 (> 60)
[2021-09-09] MEDS: Heparin 25,000UNIT/250ML 1/2NS 25,000 UNIT/250 ML IV.SOLN IVC SCH (01:25)
[2021-09-09 04:59] VITALS: O2SAT 95
[2021-09-09] MEDS: Ipratropium 1 PUFF INHALER IH SCH ×2 (06:05→08:04)
[2021-09-09] MEDS ORDERED: *HR* Enoxaparin 40 MG/0.4 ML SYRINGE SQ SCH (07:00)
[2021-09-09] MEDS ORDERED: lisinopriL 5 MG TABLET PO SCH (09:00)
[2021-09-09] MEDS ORDERED: Loratadine 10 MG TABLET PO SCH (09:00)
[2021-09-09] MEDS ORDERED: Thiamine (B-1) 100 MG TABLET PO SCH (09:00)
[2021-09-09] MEDS ORDERED: Furosemide 40 MG/4 ML VIAL IVP SCH (09:00)
[2021-09-09] MEDS ORDERED: Cholecalciferol (D-3) 1,000 UNIT (25MCG) TABLET PO SCH (09:00)
[2021-09-09] MEDS ORDERED: Folic Acid 1 MG TABLET PO SCH (09:00)
[2021-09-09] MEDS ORDERED: Pantoprazole 40 MG VIAL IVP SCH (09:00)
[2021-09-09] MEDS: carvediloL 6.25 MG TABLET PO SCH (09:47)
[2021-09-09] MEDS: Aspirin Enteric Coated 81 MG Tablet PO SCH (09:47)
[2021-09-09 11:25] VITALS: BP 115/78; PULSE 115; TEMP 97.9
[2021-09-09] MEDS ORDERED: Remdesivir 100 MG in 0.9 % Sodium Chloride 100 ML IVPB SCH (15:00)
== END 2021-09-09 14:08 | disposition home or self-care (01) | DRG 871 ==
LOC: SUATTDRO → EMEROOARM 04:31 → 3ANU 04:31
PROVIDERS: ADMIT Pharmacist; ATTEND Pharmacist